=== PATIENT | female | born 1975 ===

== ENCOUNTER 2024-02-23 13:02 | Outpatient (AMB) | payer MEDICAID, SELFPAY ==
--- NOTE | 2024-02-23 13:04 | MHC.OFFVIS ---
Vital Signs 02/23/24 13:05 Height 5 ft 4 in Weight 195 lb BMI 33.5 BP 114/69 Blood Pressure Location Rt brachial Position Sitting Pulse 59 Pulse Source Pulse Oximeter Pulse Oximetry (%) 100 Oxygen Delivery Method Room Air Intake Visit Reasons: Osteoarthritis Allergies No Known Allergies Allergy (Verified 02/23/24 13:07) Medication List - Last Reconciled 02/23/24 by Jeanette Hernandez calcium carbonate-vitamin D3 600 mg-12.5 mcg (500 unit) (Calcium 600 with Vitamin D3) caps PO gabapentin 300 mg PO DAILY ibuprofen 600 mg PO Q8H PRN levocetirizine (Xyzal) 5 mg PO DAILY mg-we-dalp-FA-Ca carb-vit K 18 mg-400 mcg- 500 mg-50 mcg (Women's Multivitamin) tabs PO HPI Comments Details: Sonya is a very pleasant 48-year-old female who presents to the office today for evaluation management of her chronic cervical neck. Patient has been suffering with this pain for approximately 8 years, denies inciting injury. Formally under the care of pain management in [place]. She has had right cervical radiofrequency ablation performed 1 year ago. After the ablation she developed worsening pain to the right side of her neck with tightness and muscle spasms. Despite physical therapy, massage, trigger point injections the pain has persisted. She has since moved up to [facility] and is establishing care for follow-up Patient's history of substance use disorder, she has tried muscle relaxers in the past with some help. She has concerns about taking these on a daily basis given her history. previously took baclofen which provide her some relief but she tapered herself off after feeling like she was becoming physically dependent on the medication. Tizanidine and Flexeril in the past caused her to be too somnolent Denies radiation of the pain down either extremity to the hand. Denies shooting stabbing electrical pain down either extremity Endorses right sided neck pain from the base of her skull to her shoulder and across her scapula Pain is worse with movement in tender to palpation. Pain today is rated as an 8/10, constant and worse towards the end of the day and into the evening She has tried nonsteroidal anti-inflammatory medication, jifm-aoe-ygulgsf medications, lidocaine patches, topical creams, massage, TENS unit, cervical traction, physical therapy and home exercise program all without improvement of her pain. Greater than 6 months ago she underwent trigger point injections which provided her some relief, she would like to repeat these. She found minimal improvement with physical therapy though she is getting ready to restart it as referred by her PCP In terms of muscle damage condition is described as pinching, cramping, crushing, dull, sore, hurting, aching, heavy, punishing, tugging, pulling, ranging, tiring, hot, burning, scalding, tight, searing, squeezing Pain is negatively impacting patient's ability to sleep, perform activities of daily living, function normally. Denies implantable devices, pacemaker or defibrillator Denies current use of anticoagulant medication Former smoker, quit in 2014 Denies alcohol use. Endorses THC use, edibles Endorses history of substance use disorder. She has been in recovery for 18 years. [facility] Medical History (Updated 02/23/24 @ 13:51 by Willow Nelson APRN, CIRCULATION WORKER) Mental health disorder Heart palpitations Hepatitis C Fatigue Osteoarthritis Asthma Anemia Surgical History (Updated 02/23/24 @ 13:51 by Willow Nelson APRN, CIRCULATION WORKER) H/O: hysterectomy Gastric bypass status for obesity Review of Systems Const All systems reviewed & are unremarkable except as noted in HPI and below Physical Exam Vital Signs: Last Vital Signs Pulse 59 02/23/24 13:05 BP 114/69 02/23/24 13:05 Pulse Ox 100 02/23/24 13:05 Oxygen Delivery Method Room Air 02/23/24 13:05 BMI result Body Mass Index 33.5 General: awake, alert, oriented. Answers questions appropriately. Fully engaged in examination. Skin: warm, dry, intact HEENT: Normocephalic. Hearing intact. Cardiac: External chest normal in appearance. Respiratory: No cough, audible wheezing or stridor. Abdomen: without gross distension. MS: No obvious swelling or deformities. Able to transition from sit to stand unassisted. Ambulates with bilaterally normal heel strike and toe off Cervical Spine: Visible inspection without gross abnormality Moderate tenderness throughout bilateral upper trapezius muscles, right greater than left. Minimally tender to palpation midline cervical vertebrae and cervical paraspinal muscles decreased cervical ROM in all planes Spurling compression test positive BUE strength 5/5 Neurological: Oriented to person, place, time and situation. Thought process intact. No gait abnormalities appreciated. Psychiatric: Appropriate mood and affect. Good judgment and insight. Results Reviewed Results Reviewed: MRI cervical spine without contrast dated 03/24/2021 Impression: 1. Disc bulge and uncovertebral arthroplasty at C5-C6 causing swwq-sb-opvfhpah right neural foraminal narrowing. There is no central canal stenosis. 2. Small left paracentral disc protrusion and on uncovertebral arthropathy at C4-5 without spinal stenosis 3. Small disc bulges at C3-C4 and C6-C7 without spinal stenosis Assessment & Plan Assessment & Plan (1) Myofascial neck pain: Code(s): M54.2 - Cervicalgia Category: Medical (2) Trapezius muscle spasm: Code(s): M62.838 - Other muscle spasm Category: Medical (3) Cervical spondylosis: Code(s): M47.812 - Spondylosis without myelopathy or radiculopathy, cervical region Category: Medical Plan Sonya is a very pleasant 48-year-old female who presented to the office today for evaluation and management of her chronic neck pain History, physical exam and provocative testing consistent with myofascial neck pain, trapezius muscle spasm and cervical spondylosis Patient has exhausted conservative therapy including PT, home exercise program, massage, anti-inflammatory medications, heat, topical medications, muscle relaxers and krcp-itt-weyfeis medications Will try methocarbamol 500 mg p.o. t.i.d. as needed. Patient advised on cautions for use. We will schedule for an office trigger point injections with local anesthetic Records have been requested from patient's previous pain management clinic in [place] All questions and concerns were answered, patient agrees with the plan. Follow-up as planned for trigger point injections, sooner if needed. Medications: New methocarbamol No driving while taking this medication. Do no take with alcohol or other NURSE IN[employer]CTOR Depressants 500 mg PO TID PRN 45 tabs 0RF muscle spasm Coding Level of Care Code New Pt Level 4 (46043) Diagnoses Myofascial neck pain M54.2 Trapezius muscle spasm M62.838 Cervical spondylosis M47.812
[2024-02-23 13:05] VITALS: BP 114/69; PULSE 59; O2SAT 100; BMI 33.5
== END 2024-02-23 13:50 | disposition home or self-care (01) ==
PROVIDERS: PCP Family Medicine; Visit Provider Registered Nurse Emergency
DX: M54.2 Cervicalgia (principal); M62.838 Other muscle spasm; M47.812 Spondylosis without myelopathy or radiculopathy, cervical region
CPT/HCPCS: 99204

== ENCOUNTER → 2024-02-23 13:02 | Outpatient (BNVA) | payer MEDICAID, SELFPAY | PROVIDERS: PCP Family Medicine; Visit Provider Registered Nurse Emergency | DX: M54.2 Cervicalgia (principal); M62.838 Other muscle spasm; M47.812 Spondylosis without myelopathy or radiculopathy, cervical region | CPT/HCPCS: 99212 ==

== ENCOUNTER 2024-03-16 09:55 | Outpatient (AMB) | payer MEDICAID, SELFPAY ==
--- NOTE | 2024-03-16 10:02 | MHC.OFFVIS ---
Vital Signs 03/16/24 10:12 Height 5 ft 4 in Weight 194 lb 4 oz BMI 33.3 BP 115/70 Blood Pressure Location Lt brachial Position Sitting Respiration 16 Pulse 62 Pulse Source Pulse Oximeter Pulse Oximetry (%) 100 Oxygen Delivery Method Room Air Intake Visit Reasons: Trigger point Inj Intake Note: Patient comes in for trigger point injection. Reports pain 7/10. Allergies No Known Allergies Allergy (Verified 03/16/24 10:04) HPI Comments Details: Sonya is in my office today to receive trigger point injection in her trapezius muscle. She reported in the past she received this injection with great results. She was explained risks and benefits of the trigger point injections. The patient's condition described below also disc were discussed. She has a history of substance use disorder but she says that she was taking her last opioid 18 years ago. It was heroin. All things considered she recovered from addiction. Prior: Chronic neck pain Patient has been suffering with this pain for approximately 8 years, denies inciting injury. Formally under the care of pain management in [place]. She has had right cervical radiofrequency ablation performed 1 year ago. After the ablation she developed worsening pain to the right side of her neck with tightness and muscle spasms. Despite physical therapy, massage, trigger point injections the pain has persisted. She has since moved up to [facility] and is establishing care for follow-up Patient's history of substance use disorder, she has tried muscle relaxers in the past with some help. She has concerns about taking these on a daily basis given her history. previously took baclofen which provide her some relief but she tapered herself off after feeling like she was becoming physically dependent on the medication. Tizanidine and Flexeril in the past caused her to be too somnolent Denies radiation of the pain down either extremity to the hand. Denies shooting stabbing electrical pain down either extremity Endorses right sided neck pain from the base of her skull to her shoulder and across her scapula Pain is worse with movement in tender to palpation. Pain today is rated as an 8/10, constant and worse towards the end of the day and into the evening She has tried nonsteroidal anti-inflammatory medication, sezw-mkt-uqgzjjq medications, lidocaine patches, topical creams, massage, TENS unit, cervical traction, physical therapy and home exercise program all without improvement of her pain. Greater than 6 months ago she underwent trigger point injections which provided her some relief, she would like to repeat these. She found minimal improvement with physical therapy though she is getting ready to restart it as referred by her PCP [facility] Medical History (Updated 02/23/24 @ 13:51 by Willow Nelson APRN, LETICIA) Mental health disorder Heart palpitations Hepatitis C Fatigue Osteoarthritis Asthma Anemia Surgical History (Updated 02/23/24 @ 13:51 by Willow Nelson APRN, LETICIA) H/O: hysterectomy Gastric bypass status for obesity Review of Systems Const All systems reviewed & are unremarkable except as noted in HPI and below Physical Exam Vital Signs: Last Vital Signs Pulse 62 03/16/24 10:12 Resp 16 03/16/24 10:12 BP 115/70 03/16/24 10:12 Pulse Ox 100 03/16/24 10:12 Oxygen Delivery Method Room Air 03/16/24 10:12 BMI result Body Mass Index 33.3 General: awake, alert, oriented. Answers questions appropriately. Fully engaged in examination. Skin: warm, dry, intact HEENT: Normocephalic. Hearing intact. Cardiac: External chest normal in appearance. Respiratory: No cough, audible wheezing or stridor. Abdomen: without gross distension. MS: No obvious swelling or deformities. Able to transition from sit to stand unassisted. Ambulates with bilaterally normal heel strike and toe off Cervical Spine: Visible inspection without gross abnormality Moderate tenderness throughout bilateral upper trapezius muscles, right greater than left. Minimally tender to palpation midline cervical vertebrae and cervical paraspinal muscles decreased cervical ROM in all planes Spurling compression test positive BUE strength 5/5 Neurological: Oriented to person, place, time and situation. Thought process intact. No gait abnormalities appreciated. Psychiatric: Appropriate mood and affect. Good judgment and insight. Assessment & Plan Assessment & Plan (1) Myofascial neck pain: Code(s): M54.2 - Cervicalgia Category: Medical Plan: The patient was positioned sitting on the examination table. The most tender point on the right shoulder was examined and taut band was discovered. Location of the taut band was marked with surgical marker. After that the area was prepped with ChloraPrep and sterilely obtained bupivacaine 0.5% mixed with Kenalog 40 mg was injected into the taut band area in fan-like fashion. The patient tolerated procedure fairly well. No side effects were observed. (2) Trapezius muscle spasm: Code(s): M62.838 - Other muscle spasm Category: Medical (3) Cervical spondylosis: Code(s): M47.812 - Spondylosis without myelopathy or radiculopathy, cervical region Category: Medical Plan Sonya is a very pleasant 48-year-old female who presented to the office today for evaluation and management of her chronic neck pain History, physical exam and provocative testing consistent with myofascial neck pain, trapezius muscle spasm and cervical spondylosis Patient has exhausted conservative therapy including PT, home exercise program, massage, anti-inflammatory medications, heat, topical medications, muscle relaxers and agnu-sba-uxidikh medications Records have been requested from patient's previous pain management clinic in [place] We did not receive it yet. Trigger point injections as above. Patient will schedule appointment for left-sided trigger point injection to be performed in 1 month. Coding Level of Care Code Est Pt Level 3 (83648) Procedure Only Diagnoses Myofascial neck pain M54.2 Trapezius muscle spasm M62.838 Cervical spondylosis M47.812
[2024-03-16 10:12] VITALS: BP 115/70; PULSE 62; RESP 16; O2SAT 100; BMI 33.3
== END 2024-03-16 10:30 | disposition home or self-care (01) ==
PROVIDERS: PCP Family Medicine; Visit Provider Anesthesiology
DX: M54.2 Cervicalgia (principal); M62.838 Other muscle spasm; M47.812 Spondylosis without myelopathy or radiculopathy, cervical region
CPT/HCPCS: 20552; 99213

== ENCOUNTER → 2024-03-16 09:55 | Outpatient (BNVA) | payer MEDICAID, SELFPAY | PROVIDERS: PCP Family Medicine; Visit Provider Anesthesiology | DX: M54.2 Cervicalgia (principal); M62.838 Other muscle spasm; M47.812 Spondylosis without myelopathy or radiculopathy, cervical region | CPT/HCPCS: 20552; 99212; J0665; J3301 ==

== ENCOUNTER 2024-04-21 09:26 | Outpatient (AMB) | payer MEDICAID, SELFPAY ==
--- NOTE | 2024-04-21 09:28 | A.OFFVIS_ITS ---
Vital Signs 04/21/24 09:36 Height 5 ft 4 in Weight 188 lb 2 oz BMI 32.3 BP 116/77 Blood Pressure Location Lt brachial Position Sitting Respiration 16 Pulse 62 Pulse Source Pulse Oximeter Pulse Oximetry (%) 100 Oxygen Delivery Method Room Air Intake Visit Reasons: F/U for inj other side Intake Note: Patient comes in for trigger point injection. Reports pain 10/06. Allergies No Known Allergies Allergy (Verified 04/21/24 09:37) HPI Comments Details: Sonya is in my office today to receive trigger point injection in her trapezius muscle. Last month she reported to this office and received right-sided injection. Today she is here to receive left-sided trapezius muscle injection. There is a taut band on palpation in the projection of the medial portion of the trapezius muscle. She is asking me whether or not she can receive masseter muscles Botox injections in this office. Unfortunately she can not have massage or muscle buttocks injection here but she can not go to local dentist office and receive this injection with them. She reports good results on the right trigger point steroid injections she is looking forward for the left side injection today. She is asking me how often she can not receive those injections I told her that once I had should be injected no more frequent that once in 3 months however I told her to try to stretch this interval as much as possible because of the steroid medications have lots of complications. In the past she received steroid injections trigger point with great results. She was explained risks and benefits of the trigger point injections. She has a history of substance use disorder but she says that she was taking her last opioid 18 years ago. It was heroin. All things considered she recovered from addiction. Prior: Chronic neck pain Patient has been suffering with this pain for approximately 8 years, denies inciting injury. Formally under the care of pain management in [place]. She has had right cervical radiofrequency ablation performed 1 year ago. After the ablation she developed worsening pain to the right side of her neck with tightness and muscle spasms. Despite physical therapy, massage, trigger point injections the pain has persisted. She has since moved up to [facility] and is establishing care for follow-up Patient's history of substance use disorder, she has tried muscle relaxers in the past with some help. She has concerns about taking these on a daily basis given her history. previously took baclofen which provide her some relief but she tapered herself off after feeling like she was becoming physically dependent on the medication. Tizanidine and Flexeril in the past caused her to be too somnolent Denies radiation of the pain down either extremity to the hand. Denies shooting stabbing electrical pain down either extremity Endorses right sided neck pain from the base of her skull to her shoulder and across her scapula Pain is worse with movement in tender to palpation. Pain today is rated as an 8/10, constant and worse towards the end of the day and into the evening She has tried nonsteroidal anti-inflammatory medication, uqzf-xan-hbcdoql medications, lidocaine patches, topical creams, massage, TENS unit, cervical traction, physical therapy and home exercise program all without improvement of her pain. Greater than 6 months ago she underwent trigger point injections which provided her some relief, she would like to repeat these. She found minimal improvement with physical therapy though she is getting ready to restart it as referred by her PCP [facility] Medical History (Updated 02/23/24 @ 13:51 by Willow Nelson APRN, DIRECTOR OF RELIGIOUS LIFE) Mental health disorder Heart palpitations Hepatitis C Fatigue Osteoarthritis Asthma Anemia Surgical History (Updated 02/23/24 @ 13:51 by Willow Nelson APRN, DIRECTOR OF RELIGIOUS LIFE) H/O: hysterectomy Gastric bypass status for obesity Review of Systems Const All systems reviewed & are unremarkable except as noted in HPI and below Physical Exam Vital Signs: Last Vital Signs Pulse 62 04/21/24 09:36 Resp 16 04/21/24 09:36 BP 116/77 04/21/24 09:36 Pulse Ox 100 04/21/24 09:36 Oxygen Delivery Method Room Air 04/21/24 09:36 BMI result Body Mass Index 32.3 General: awake, alert, oriented. Answers questions appropriately. Fully engaged in examination. Skin: warm, dry, intact HEENT: Normocephalic. Hearing intact. Cardiac: External chest normal in appearance. Respiratory: No cough, audible wheezing or stridor. Abdomen: without gross distension. MS: No obvious swelling or deformities. Able to transition from sit to stand unassisted. Ambulates with bilaterally normal heel strike and toe off Cervical Spine: Visible inspection without gross abnormality Moderate tenderness throughout bilateral upper trapezius muscles, right greater than left. Minimally tender to palpation midline cervical vertebrae and cervical paraspinal muscles decreased cervical ROM in all planes Spurling compression test positive BUE strength 5/5 Neurological: Oriented to person, place, time and situation. Thought process intact. No gait abnormalities appreciated. Psychiatric: Appropriate mood and affect. Good judgment and insight. Assessment & Plan Assessment & Plan (1) Myofascial neck pain: Code(s): M54.2 - Cervicalgia Category: Medical Plan: The patient was positioned sitting on the examination table. The most tender point on the left shoulder was examined and taut band was discovered. Location of the taut band was marked.. After that the area was prepped with ChloraPrep and sterilely obtained bupivacaine 0.5% mixed with Kenalog 40 mg was injected into the taut band area in fan-like fashion. The patient tolerated procedure fairly well. No side effects were observed. (2) Trapezius muscle spasm: Code(s): M62.838 - Other muscle spasm Category: Medical (3) Cervical spondylosis: Code(s): M47.812 - Spondylosis without myelopathy or radiculopathy, cervical region Category: Medical Plan Sonya is a very pleasant 48-year-old female who presented to the office today for evaluation and management of her chronic neck pain History, physical exam and provocative testing consistent with myofascial neck pain, trapezius muscle spasm and cervical spondylosis Patient has exhausted conservative therapy including PT, home exercise program, massage, anti-inflammatory medications, heat, topical medications, muscle relaxers and cggz-pzr-srywxgp medications She is asking me about whether or not her pain in the masseters can be attended by injection in this office. I told her that it is impossible to receive those injections here. She also was asking me whether or not the pain in the trapezius muscle what can not be result of macromastia. I told her to get a consult with plastic surgeon about this condition. Trigger point injections as above. Next appointment is as needed. Coding Level of Care Code Est Pt Level 3 (73542) Procedure Only Diagnoses Myofascial neck pain M54.2 Trapezius muscle spasm M62.838 Cervical spondylosis M47.812
[2024-04-21 09:36] VITALS: BP 116/77; PULSE 62; RESP 16; O2SAT 100; BMI 32.3
== END 2024-04-21 09:59 | disposition home or self-care (01) ==
PROVIDERS: PCP Family Medicine; Visit Provider Anesthesiology
DX: M54.2 Cervicalgia (principal); M62.838 Other muscle spasm; M47.812 Spondylosis without myelopathy or radiculopathy, cervical region
CPT/HCPCS: 20552

== ENCOUNTER → 2024-04-21 09:26 | Outpatient (BNVA) | payer MEDICAID, SELFPAY | PROVIDERS: PCP Family Medicine; Visit Provider Anesthesiology | DX: M47.812 Spondylosis without myelopathy or radiculopathy, cervical region (principal); M62.838 Other muscle spasm | CPT/HCPCS: 20552; J0665; J3301 ==

== ENCOUNTER 2024-05-04 10:02 | Outpatient (REF) | payer MEDICAID, SELFPAY ==
--- NOTE | 2024-05-10 07:52 | MHC.AU.PEA ---
Audiological Evaluation: Pre-Central Auditory Processing Date of Visit: 05/04/24 Reason for Appointment: Audiological testing to determine if full Central Auditory Processing evaluation is warranted. Reportedly inquired about CAP testing via her PCP due to increasing difficulty understanding speech in the presence of competing noises. Recently, noticed difficulty hearing a song playing on an overhead speaker at a store that her could hear. Since then, started noticing more situations where she mishears words or is unable to comprehend the full conversation, missing a majority of what is said. Most frequently occurs in background noise (e.g., AC units, fans, sound machines), noted difficulty filtering out sounds and focusing on speech. Misunderstandings can be frustrating, sometimes causing issues with family members. Can get overwhelmed in public/crowded places. Reported long history of difficulty focusing, trouble remembering directions and completing tasks with multiple steps/directions. Dx ADHD, prescribed Vyvanse. However, has not taken in a couple weeks due other health issues. Has noticed she is calmer/more focused when medicated. Also question of possible autism. In process of scheduling reevaluation for ADHD and evaluation for autism at [facility]. Previous Test: 2010 Neuropsychological Evaluation: Dx ADHD (Taking Suboxone at that time, question influence on results) Patient History: Health History: Migraines; Anxiety/Depression; Panic Attacks; ADHD Patient's Medications: Levocetirizine, Gapapentin, Multivitamin, Calcium, Vit D, Iron, Vit C, Magnesium, Vit B12 Otoscopy: Right Ear: Unremarkable Left Ear: Unremarkable Tympanometry: Performed to: To assess integrity of the middle ear system Right Ear: Normal Middle Ear System (Type A) Left Ear: Normal Middle Ear System (Type A) Acoustic Reflexes: Ipsilateral Probe Right: Probe Left: 500 Hz: Present 500 Hz: Present 1000 Hz: Present 1000 Hz: Present 2000 Hz: Present 2000 Hz: Present 4000 Hz: Absent 4000 Hz: Present Otoacoustic Emissions: Frequency Range: 1.5-12 kHz Right Ear: Present 1.5-9 kHz; Reduced/absent 10-12 kHz Left Ear: Present 1.5-9 kHz; Reduced/absent 10-12 kHz Analysis: Present emissions suggest normal cochlear function; Absent emissions suggest cochlear dysfunction Hearing Evaluation: Method: Conventional Audiometry; Transducer: Insert Earphones; Stimuli: Pure Tones Right Ear: Normal hearing .25-8 kHz Left Ear: Normal hearing .25-8 kHz Speech Recognition Threshold (SRT): Method: Monitored Live Voice; Stimuli: Spondee Words Right Ear: 5 dB HL Left Ear: 5 dB HL Word Discrimination: Method: Recorded; Word Lists: NU-6 Right Ear: 100% correct at 50 dB HL Left Ear: 100% correct at 50 dB HL Most Comfortable Level: Method: Monitored Live Voice; Stimuli: Connected Discourse Right Ear: 50 dB HL to speech Left Ear: 50 dB HL to speech Uncomfortable Listening Level: Stimuli: Pure Tones Right Ear: >100, 100, 100, 100 dB at .5, 1, 2, and 4 kHz Left Ear: >100, 100, >100, 100 dB at .5, 1, 2, and 4 kHz QuickSIN: 0 dB SNR Loss - Normal (Central) Auditory Processing Screening Auditory Continuous Performance Test (ACPT): The ACPT provides information regarding auditory attention. This screening test evaluates an individual's ability to listen to auditory stimuli over a prolonged period of time. The score is based on the number of times the patient does not respond to the target stimuli and/or responds to stimuli other than the target stimuli. A score outside normative levels indicates possible attention difficulties. Passed ACPT SCAN-3 for Adolescents & Adults (SCAN-3:A): This is a screening test to determine if a individual is at risk for an Auditory Processing Disorder. The screening evaluates three areas of auditory processing skills and is scored by an age-appropriate Pass/Fail criterion. It is comprised of three parts: Gap Detection, Auditory Figure-Ground, and Competing Words-Free Recall. Gap Detection: Passed Gap Detection Auditory Figure-Ground +0dB: Passed Auditory Figure-Ground Competing Words- Free Recall: Passed Competing Words - Free Recall Overall: Passed SCAN- Not at high risk for auditory processing difficulties Interpretation of Results: Sonya has normal peripheral hearing, scored within normal on the QuickSIN, and passed all three subtests of the SCAN-3 (CAP screener). Given normal atbsup-oh-zfcqh testing and a passing score on the SCAN-3, a full CAP test is not warranted at this time. Recommendations: No further audiological action is indicated at this time. Given other reported hx related to Speech, Language, and Cognition (e.g., difficulty expressing thoughts, orientation/memory, maintaining topic of conversation), Speech, Language, and Cognition testing at [facility] may be warranted in conjunction with other evaluations for autism and ADHD. Signature: Provider: Marclea Perales, [facility]
== END 2024-05-04 10:03 | disposition home or self-care (01) ==
LOC: HO.SH 10:02
PROVIDERS: PCP Family Medicine; Visit Provider Physician Assistant
DX: Z01.118 Encounter for examination of ears and hearing with other abnormal findings (principal); H93.293 Other abnormal auditory perceptions, bilateral
CPT/HCPCS: 92550; 92557; 92588; 92700

== ENCOUNTER 2024-05-13 13:01 | Outpatient (AMB) | payer MEDICAID, SELFPAY ==
[2024-05-13 13:06] VITALS: BP 106/62; PULSE 74; O2SAT 99; BMI 31.6
--- NOTE | 2024-05-13 13:06 | A.OFFVIS_ITS ---
Vital Signs 05/13/24 13:06 Height 5 ft 4 in Weight 184 lb 1.376 oz BMI 31.6 BP 106/62 Blood Pressure Location Lt brachial Position Sitting Pulse 74 Pulse Source Pulse Oximeter Pulse Oximetry (%) 99 Oxygen Delivery Method Room Air Intake Visit Reasons: +RF/CM Intake Note: Patient presents today for abnormal labs, she is a new patient, referred by her PCP, Taylor Hernández. Allergies No Known Allergies Allergy (Verified 05/13/24 13:09) Medication List - Last Reconciled 05/13/24 by Elena Rodriguez MD calcium carbonate-vitamin D3 600 mg-12.5 mcg (500 unit) (Calcium 600 with Vitamin D3) caps PO famotidine 40 mg PO DAILY ferrous sulfate (Curly-Time) 325 mg PO DAILY gabapentin 300 mg PO DAILY ibuprofen 600 mg PO Q8H PRN levocetirizine (Xyzal) 5 mg PO DAILY lisdexamfetamine (Vyvanse) 10 mg PO DAILY magnesium oxide 500 mg PO DAILY mecobalamin (vitamin B12) mcg PO methocarbamol 500 mg PO TID PRN [id number] carb-vit K 18 mg-400 mcg- 500 mg-50 mcg (Women's Multivitamin) tabs PO omeprazole 40 mg PO DAILY HPI Comments Details: Patient is a 48-year-old female status post gastric bypass surgery who presents for evaluation of chronic back pain. Patient states that she started developing back pain in her 20s but at that time she was morbidly obese. She got gastric bypass and lost over 250 lb. After the rate loss she noted that the back pain and even the knee pain improved. However about 1-2 years ago she started noticing back pain that would improve with movement and worsen long prolonged periods of rest. She also started to notice shoulder pain and neck pain as well as knee pain. She denies any hand, wrist, feet, elbow pain. She has been seen and evaluated by crusher loader operator and serologies showed elevated rheumatoid factor however her exam was never consistent with inflammatory arthritis and show she was never given the diagnosis of rheumatoid arthritis. 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 She has gotten MRIs of the C-spine and LS-spine (reports reviewed) which showed degenerative disc disease throughout her spine. Her blood work has never shown elevated ESR CRP based on what I was shown. She does not have a history of inflammatory eye disease, dactylitis, psoriasis or rash. She has tried methotrexate, sulfasalazine and duloxetine in the past with no improvement in her pain. She does have a strong family history of osteoarthritis and autoimmune disease specifically thyroid disease including grades. [facility] Medical History (Updated 05/13/24 @ 14:10 by Elena Rodriguez MD) Lumbosacral disc disease Mental health disorder Heart palpitations Hepatitis C Fatigue Osteoarthritis Asthma Anemia Surgical History (Updated 02/23/24 @ 13:51 by Willow Nelson APRN, LIFT TRUCK MECHANIC) H/O: hysterectomy Gastric bypass status for obesity Review of Systems Const Details: Review of Systems Constitutional: Denies fever, chills, weight loss ENT: Denies vision changes, eye pain or eye redness, dental caries, dry mouth GI: Denies nausea, vomiting, diarrhea, abdominal pain, change in BM Pulm: Denies SOB, SMILEY, hemoptysis, wheezing Cards: Denies chest pain, palpitations Skin: Denies Raynaud's, rash, nail changes, photosensitivity, ANIMAL TECHNICIAN: Denies headaches, weakness, paresthesias, recurrent falls MSK: as per HPI All other systems reviewed and are unremarkable except noted above Physical Exam Vital Signs: BMI result Body Mass Index 31.6 Physical Examination CONSTITUITIONAL Patient alert and cooperative. Well appearing and in no apparent painful distress HEENT Conjunctiva and sclera clear. ?Pupils equal round and reactive to light. ?No lymphadenopathy. ?Normal dentition. No oral or nasal ulcers noted. No evidence of discoid rash to the sergio of ears CHEST/RESPIRATORY SYSTEM Normal respiratory effort and able to speak in complete sentences. ?Clear to auscultation bilaterally. ?No crackles, rales, rhonchi, wheezes heard. CARDIAC SYSTEM Regular rate and rhythm. ?S1 and S2 heard no murmurs. ?Radial pulses intact bilaterally MSK Hands: ?Good emt strength bilaterally - 5/5. ?No deformities noted. ?No synovitis noted to the MCPs, PIPs or DIPs. ?No tenderness to palpation of these joints. Wrists: ?Full range of motion at the wrists without pain. ?No tenderness to palpation or synovitis noted to the wrists. Elbows: Full range of motion without pain. No tenderness, weakness, swelling, increased warmth or erythema. Shoulders: Full range of motion to passive movement. Right shoulder with positive subscapularis and infraspinatus tendinopathy. Left shoulder with positive supraspinatus tendinopathy Hips: Full range of motion without pain. Hip bursa: No tenderness to palpation Knees: ?Full range of motion. ?No tenderness, swelling, increased warmth or erythema.?No effusion or crepitations Ankles: Full range of motion. ?No tenderness, swelling, increased warmth or erythema.? Feet: ?Negative squeeze test. ?No tenderness to palpation or swelling of the MTPs. Tender points:??No tenderness to palpation of the neck, shoulders, chest, elbows, hips, buttocks or knees. Wong's test normal SKIN Skin intact without rashes. Results Reviewed Results Reviewed: No results in chart to review however reviewed results on patient's MyChart. Assessment & Plan Assessment & Plan (1) Lumbosacral disc disease: Code(s): M51.9 - Unspecified thoracic, thoracolumbar and lumbosacral intervertebral disc disorder Category: Medical Plan: #Spondyloarthritis At this time I have an equivocal suspicion for her feels [place] for this diagnosis is the fact that the pain improves with movement and that the pain started at a young age. Against this is the fact that the pain improved after her weight loss surgery, normal Wong's test, evidence of degenerative disc disease throughout her spine, no other objective evidence of spondyloarthritis such as inflammatory eye disease, dactylitis, GI symptoms or skin disease. Had a very long discussion with patient about my findings and treatment options. I discussed that we could try Humira which is effective for spinal spondyloarthritic these whereas methotrexate and sulfasalazine were not. Or we could try Celebrex. Patient opted to try Celebrex and I am in agreement with her decision. Plan I spent 60 minutes reviewing the record and labs, seeing the patient, discussing the treatment plan and documenting in the medical record Medications: New celecoxib (Celebrex) 200 mg PO BID 180 caps 1RF M51.9 - Unspecified thoracic, thoracolumbar and lumbosacral intervertebral disc disorder Coding Level of Care Code New Pt Level 5 (77431) Diagnoses Lumbosacral disc disease M51.9
== END 2024-05-13 14:14 | disposition home or self-care (01) ==
PROVIDERS: PCP Family Medicine; Visit Provider Student in an Organized Health Care Education/Training Program
DX: M51.9 Unspecified thoracic, thoracolumbar and lumbosacral intervertebral disc disorder (principal)
CPT/HCPCS: 99205

== ENCOUNTER → 2024-05-13 13:01 | Outpatient (BNVA) | payer MEDICAID, SELFPAY | PROVIDERS: PCP Family Medicine; Visit Provider Student in an Organized Health Care Education/Training Program | DX: M51.9 Unspecified thoracic, thoracolumbar and lumbosacral intervertebral disc disorder (principal) | CPT/HCPCS: 99202 ==

== ENCOUNTER 2024-07-26 14:41 | Outpatient (REF) | payer MEDICAID, SELFPAY ==
[2024-07-26 15:49] LABS: MANUAL DIFF FLAG NO
--- OUTSIDE RECORDS SUMMARY | 2024-07-26 16:21 | XMS_ITS | Continuity of Care Document ---
Author Organization [facility] Address [address] [place] [address] Phone Care Team Providers Care Kitchen Chef Name Role Phone José Miguel Esquivel MD Unavailable Unavailable Allergies, Adverse Reactions, Alerts Substance Reaction Status Criticality No Known Allergies Active No Inform ation Medications Medication Instructions Dosage Effective Dates (start - stop) Status Comments gabapentin 300 mg capsule take 1 capsule by oral route 3 times every day 300 MG - Active levocetirizine 5 mg tablet take 1 tablet by oral route every day in the evening 5 MG - Active mupirocin 2 % topical ointment apply by topical route 3 times every day a small amount to the affected area 0.00 - Active Problems Condition Type Effective Dates (start - stop) [facility] Status Comments No Known Problems Procedures Procedure Date OV, New Pt, Level II Advance Directives Directive Yes / No Effective Date File Name No Information Encounters Encounter Description Practice Location Reason(s) For Visit Diagnoses Date Provider Providers Copied on Encounter OV, New Pt, Level II [facility], [address], [place], [place], [id number], [place] tel:[phone] [facility] Nasal obstruction (chief complaint) Deviated nasal septumOther specified disorders of nose and nasal sinuses 3 Alvin Valdez. [address], [address], [place], [place], [id number] , [place]. tel:[phone] Family History Family Member Type Diagnosis Age At Onset Father Problem malignant neoplasm of skin Mother Problem Cancer, unknown Sister Problem asthma Payers Payer name Insurance type Covered constitution party ID Authoriza tion(s) No Information Social History Type Description Quantity Date Captured Comments Alcohol Use Details No Caffeine Use Details Tobacco Use Status No Information Smoking Status Never smoker Non-Smoking Tobacco Use Details : No Details Available : No Details Available Sex Female Vital Signs Date / Time: Height Weight BMI Pulse Rate Blood Pressure Temperature Respiratory Rate Body Surface Area Head Circumference Head Circ. Percentile Wt./Kirt. Percentile BMI percentile Pulse Ox Inhaled Ox 1:45 PM 67.00 in 77.111 kg (170.00 lbs) 26.6 3 kg/m eter (2) Chief Complaint And Reason For Visit From encounter dated 07/15/2022 13:40'. Nasal obstruction (chief complaint). Description: It occurs in the right nostril. It occurs occasionally. The problem has not changed. Associated symptoms include nasal drainage (clear). Additional information: Pt states she feels something sharp in right nostril. Reason For Referral Reason For Referral No Information History Of Present Illness Encounter Date Complaint History Of Prese nt Illness Nasal obstruction It occurs in t he right nostril. It occurs occasionally. The problem has not changed. Associated symptoms include nasal drainage (clear). Additional information: Pt states she feels something sharp in right nostril. Functional Status Date Functional Assessmen t No Information Instructions Date Instruction Additional Infor mation Use Rx or OTC nasal steroid spray to control symptoms and avoid triggers or known allergens. Related to Deviated nasal septum Assessments Type Assessment Date assessment Deviated nasal septum assessment Other specified disorders of nos e and nasal sinuses impression Anterior septum is p ierced. If nasal obstruction becomes too symptomatic and is not controlled with medication and/or if recurrent or chronic sinusitis occurs, patient may be a candidate for septoplasty. Mental Status Date Cognitive Assessment Orientation - [place] ed to time, place, person, situation. Patient Care Teams Name Effective Dates (start - stop) Status Members No Information
[2024-07-26 17:10] LABS: Basophils Percent Auto 0.3 % (0-2); Eosinophils Percent Auto 0.3 % (0-4); Hemoglobin 12.3 g/dl (12.0-16.0); Imm Gran Abs Auto 0.01 X10*3/uL (0.00-0.03); Imm Gran Pct Auto 0.3 % (0.0-0.4); Lymphocytes Absolute Auto 1.3 X10*3/uL (1.2-4.9); Lymphocytes Percent Auto 32.7 % (20-40); Mean Corpuscular HGB Conc 31.5 g/dl (31.0-35.0); Mean Corpuscular Hemoglobin 27.8 pg (27.0-33.0); Mean Platelet Volume 12.1 fL (9.4-12.3); Monocytes Absolute Auto 0.3 X10*3/uL (0.1-1.2); Monocytes Percent Auto 6.8 % (2-11); Neutrophils Absolute Auto 2.3 x10*3/uL (2.0-8.3); Neutrophils Percent Auto 59.6 % (45-73); Platelet Count 185 X10*3/uL (160-400); Red Blood Count 4.43 X10*6/uL (4.20-5.50); Red Cell Distribution Width 12.5 % (11.0-16.0); White Blood Count 3.9 X10*3/uL (4.8-10.8)
[2024-07-26 17:54] LABS: Alanine Aminotransferase 22 U/L (0-31); Alkaline Phosphatase 57 U/L (39-117); Anion Gap 12 (12-20); Aspartate Amino Transferase 21 U/L (5-31); Bilirubin Total 0.2 mg/dL (0.0-1.0); Blood Urea Nitrogen 7 mg/dL (9-16); C Reactive Protein < 0.04 mg/dL (< or = 0.50); Calcium 8.9 mg/dL (8.4-10.2); Carbon Dioxide 31 mmol/L (22-29); Chloride 103 mmol/L (96-108); Estimated Glomerular Filt Rate > 60; Glucose Random 92 mg/dL (60-115); Potassium 3.8 mmol/L (3.3-5.1); Sodium 142 mmol/L (135-145); Total Protein 6.8 g/dL (6.5-8.0)
[2024-07-26 17:59] LABS: Erythrocyte Sedimentation Rate 6 MM/HR (0-20)
[2024-07-27 03:48] LABS: HBS Num1 674.59 mIU/mL (0-7.99); HBc Num1 1.98 S/CO (0.00-0.79); HBsAGNum1 0.37 S/CO (0.00-0.99); Hepatitis A Antibody IgM 0.37 Index (0-0.79); Hepatitis B Surface Antigen Negative (Negative); ~HepC Num1 11.06 S/CO (0.00-0.79); ~Hepatitis A Antibody IgM Nonreactive (Nonreactive); ~Hepatitis B Surface Antibody REACTIVE (Nonreactive); ~Hepatitis C Antibody Reactive (Nonreactive)
[2024-07-27 04:35] LABS: Hepatitis B Core Antibody Reactive (Nonreactive)
[2024-07-27 17:04] LABS: Hepatitis B Viral DNA Qn - cp NOT DETECTED Log IU/mL (NOT DETECTED); Hepatitis B Viral DNA Qn-IU/mL NOT DETECTED (NOT DETECTED)
[2024-07-27 19:38] LABS: HCV Log PCR <1.18 NOT DETECTED Log IU/mL (NOT DETECTED); HepC Viral Load <15 NOT DETECTED IU/mL (NOT DETECTED)
[2024-07-29 09:58] LABS: TS Negative Control Passed; TS Panel A 0; TS Panel B 1; TS Positive Control Passed; TSpotTB Negative (Negative)
[2024-07-30 12:18] LABS: HLA B27 Negative (Negative)
== END 2024-07-26 14:42 | disposition home or self-care (01) ==
LOC: HO.LAB 14:41
PROVIDERS: PCP Family Medicine; Visit Provider Student in an Organized Health Care Education/Training Program
DX: M45.0 Ankylosing spondylitis of multiple sites in spine (principal); Z79.620 Long term (current) use of immunosuppressive biologic
CPT/HCPCS: 36415; 80053; 85025; 85652; 86140; 86481; 86704; 86706; 86709; 86803; 86812; 87340; 87517; 87522; 99212

== ENCOUNTER 2024-07-26 14:42 | Outpatient (AMB) | payer MEDICAID, SELFPAY ==
[2024-07-26 14:42] VITALS: BP 134/82; PULSE 76; BMI 31.6
--- NOTE | 2024-07-26 14:42 | MHC.OFFVIS ---
Vital Signs 07/26/24 14:42 Height 5 ft 4 in Weight 183 lb 13.848 oz BMI 31.6 BP 134/82 Blood Pressure Location Rt brachial Position Sitting Pulse 76 Pulse Source Pulse Oximeter Intake Visit Reasons: hand pain Intake Note: Patient present today for hand pain. E Learning Developer Required: No Accompanied by: Self / Same As Patient Allergies No Known Allergies Allergy (Verified 07/26/24 14:46) Medication List - Last Reconciled 07/26/24 by Elena Rodriguez MD calcium carbonate-vitamin D3 600 mg-12.5 mcg (500 unit) (Calcium with Vit D3) caps PO celecoxib (Celebrex) 200 mg PO BID famotidine 40 mg PO DAILY ferrous sulfate (Curly-Time) 325 mg PO DAILY gabapentin 300 mg PO DAILY levocetirizine (Xyzal) 5 mg PO DAILY lisdexamfetamine (Vyvanse) 30 mg PO DAILY magnesium oxide 500 mg PO DAILY mecobalamin (vitamin B12) mcg PO gi-[id number]-[id number]-FA-Ca carb-vit K 18 mg-400 mcg- 500 mg-50 mcg (Women's Multivitamin) tabs PO HPI Comments Details: Patient is a 48-year-old female status post gastric bypass surgery who presents for follow up Interval History: Patient last seen 05/13/2024 at that time she was establishing care for the management of chronic back pain. At that time there was equivocal suspicion for seronegative spondyloarthritis but after discussion with the patient she opted to try Celebrex Today, Patient has been noticing swelling to her hands in the AM when she wakes up and increased redness over the PIPs She showed me a picture on the phone that showed swelling to her hands Has been noticing stiffness in the AM lasting an hour Has been taking the celebrex. Has not noticed any improvement Rheumatologic History: Monitoring for ? Spondyloarthritis Initial history: Patient states that she started developing back pain in her 20s but at that time she was morbidly obese. She got gastric bypass and lost over 250 lb. After the rate loss she noted that the back pain and even the knee pain improved. However about 1-2 years ago she started noticing back pain that would improve with movement and worsen long prolonged periods of rest. She also started to notice shoulder pain and neck pain as well as knee pain. She denies any hand, wrist, feet, elbow pain. She has been seen and evaluated by lithographic plate maker apprentice and serologies showed elevated rheumatoid factor however her exam was never consistent with inflammatory arthritis and show she was never given the diagnosis of rheumatoid arthritis. 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 She has gotten MRIs of the C-spine and LS-spine (reports reviewed) which showed degenerative disc disease throughout her spine. Her blood work has never shown elevated ESR CRP based on what I was shown. She does not have a history of inflammatory eye disease, dactylitis, psoriasis or rash. She has tried methotrexate, sulfasalazine and duloxetine in the past with no improvement in her pain. She does have a strong family history of osteoarthritis and autoimmune disease specifically thyroid disease including grades. Current Rheumatology Medication(s): Celebrex 200 mg p.o. b.i.d. [facility] Medical History (Updated 07/26/24 @ 16:10 by Elena Rodriguez MD) Adalimumab (Humira) long-term use Ankylosing spondylitis Lumbosacral disc disease Mental health disorder Heart palpitations Hepatitis C Fatigue Osteoarthritis Asthma Anemia Surgical History (Updated 02/23/24 @ 13:51 by Willow Nelson APRN, BARKING MACHINE FEEDER) H/O: hysterectomy Gastric bypass status for obesity Review of Systems Const Details: Review of Systems Constitutional: Denies fever, chills, weight loss ENT: Denies vision changes, eye pain or eye redness, dental caries, dry mouth GI: Denies nausea, vomiting, diarrhea, abdominal pain, change in BM Pulm: Denies SOB, SMILEY, hemoptysis, wheezing Cards: Denies chest pain, palpitations Skin: Denies Raynaud's, rash, nail changes, photosensitivity, DATABASE ADMINISTRATION MANAGER: Denies headaches, weakness, paresthesias, recurrent falls MSK: as per HPI All other systems reviewed and are unremarkable except noted above Physical Exam Physical Examination CONSTITUITIONAL Patient alert and cooperative. Well appearing and in no apparent painful distress HEENT Conjunctiva and sclera clear. ?Pupils equal round and reactive to light. ?No lymphadenopathy. ?Normal dentition. No oral or nasal ulcers noted. No evidence of discoid rash to the sergio of ears CHEST/RESPIRATORY SYSTEM Normal respiratory effort and able to speak in complete sentences. ?Clear to auscultation bilaterally. ?No crackles, rales, rhonchi, wheezes heard. CARDIAC SYSTEM Regular rate and rhythm. ?S1 and S2 heard no murmurs. ?Radial pulses intact bilaterally MSK Hands: ?Good metal bonding assembler strength bilaterally - 5/5. ?No deformities noted. ?No synovitis noted to the MCPs, PIPs or DIPs. ?No tenderness to palpation of these joints. Redness over the DIPs Wrists: ?Full range of motion at the wrists without pain. ?No tenderness to palpation or synovitis noted to the wrists. Elbows: Full range of motion without pain. No tenderness, weakness, swelling, increased warmth or erythema. Shoulders: Full range of motion to passive movement. Hips: Full range of motion without pain. Hip bursa: No tenderness to palpation Knees: ?Full range of motion. ?No tenderness, swelling, increased warmth or erythema.?No effusion or crepitations Ankles: Full range of motion. ?No tenderness, swelling, increased warmth or erythema.? Feet: ?Negative squeeze test. ?No tenderness to palpation or swelling of the MTPs. Tender points:??No tenderness to palpation of the neck, shoulders, chest, elbows, hips, buttocks or knees. Wong's test normal SKIN Skin intact without rashes. Results Reviewed Results Reviewed: No labs in the system Assessment & Plan Assessment & Plan (1) Ankylosing spondylitis: Code(s): M45.9 - Ankylosing spondylitis of unspecified sites in spine Category: Medical Qualifiers: Ankylosing spondylitis location: multiple sites in spine Qualified Code(s): M45.0 - Ankylosing spondylitis of multiple sites in spine Plan: #Ankylosing spondylitis Patient with evidence of dactylitis on the picture that she showed me. Patient has tried and failed Celebrex, methotrexate, ibuprofen. I think she would benefit from Humira 40 mg SC every other week. We will check efficacy in 4 months. Start prior Auth Plan - Humira 40mg SC every other week - Stop Celebrex - Check CBC, CMP, ESR, CRP, Hepatitis panel, T spot - RTC 4 months - Labs prior to visit (2) Adalimumab (Humira) long-term use: Code(s): Z79.620 - local intermodal truck driver (current) use of immunosuppressive biologic Category: Medical Plan: #Long-term Use of TNF Inhibitors: Humira Discussed with the patient the benefits and risks of TNF inhibitors for the management of the rheumatic condition Benefits include reduce pain, maintenance of remission and reduction of flares as well as ?progression of the disease Risks include injection sites/infusion reactions, serious infections (such as bacterial infections, opportunistic infections), malignancy, delaminating syndromes, autoimmune phenomena, CHF exacerbations, palmar plantar psoriasis and cytopenias Recommended rotating injection sites, and holding medication during and for up to 1 week after resolution of a febrile illness or open skin wound Plan I spent 30 minutes reviewing the record and labs, taking a history, examining the patient, discussing the treatment plan and documenting in the medical record Orders: Orders Hepatitis C Viral Load Today M45.9 - Ankylosing spondylitis of unspecified sites in spine Hepatitis B Viral DNA Qn Today M45.9 - Ankylosing spondylitis of unspecified sites in spine HLA B27 Today M45.0 - Ankylosing spondylitis of multiple sites in spine Complete Blood Count Auto Diff Today M45.9 - Ankylosing spondylitis of unspecified sites in spine Comprehensive Met. Panel Today M45.9 - Ankylosing spondylitis of unspecified sites in spine C Reactive Protein Today M45.9 - Ankylosing spondylitis of unspecified sites in spine Hepatitis A,B,C Profile Today M45.9 - Ankylosing spondylitis of unspecified sites in spine Erythrocyte Sedimentation Rate Today M45.9 - Ankylosing spondylitis of unspecified sites in spine T Spot TB Today M45.9 - Ankylosing spondylitis of unspecified sites in spine Medications: New adalimumab (Humira(CF) Pen) (0.4 mL) 40 mg subcutaneously; 30 days 2 ea 4RF M45.9 - Ankylosing spondylitis of unspecified sites in spine Discontinued celecoxib (Celebrex) Discontinued Reason: Doctor's Order 200 mg PO BID 180 caps 1RF M51.9 - Unspecified thoracic, thoracolumbar and lumbosacral intervertebral disc disorder Coding Level of Care Code Est Pt Level 4 (26056) Complex EM visit Add On G2211 Diagnoses Ankylosing spondylitis of multiple sites in spine M45.0 Ankylosing spondylitis location: multiple sites in spine Adalimumab (Humira) long-term use Z79.620
--- OUTSIDE RECORDS SUMMARY | 2024-07-26 15:38 | XMS_ITS | Continuity of Care Document ---
Author Organization [facility], Main Office Address [address] [facility] [address] [place] [address] Assessment Encounter Date Assessment Date Assessment LastModified by Organization Details LastModified Time 07/15/2024 07/15/2024 The patient was advised to continue a healthy diet and exercise regularly. Preventative care discussed in detail. Eight minutes spent on each counselling about depression, alcohol, obesity, and cardiovascular health. Further preventative care counselling discussed as documented below. Plan - Order a screening mammogram to be conducted at the patient's preferred location. The ultrasound will be decided by the radiology team if necessary. - Send a referral and relevant notes to the ENT in [place], including information about the patient's reflux. - Prescribe famotidine 20 mg with instructions to take one tablet four times a day as needed. This is to assist in transitioning off omeprazole. - Prescribe Vyvanse 30 mg to be filled at [facility] in [place]. Monitor for any side effects or changes in efficacy. - Schedule a follow-up appointment in three months to evaluate the effectiveness and tolerance of the adjusted Vyvanse dosage. Adjustments can be made sooner if necessary, based on the patient's feedback. Moderate complexity issues was discussed in relation to ongoing laryngeal pharyngeal reflux and ADHD in addition to today's preventative visit. During this encounter, 2 of the 3 elements of MDM addressed: (1)Number and Complexity of problems: 1 or more chronic illness with exacerbation, progression, or side effects of treatment (2)Amount/Complex ity of data (need 1 out of 3 categories): Category 3: Discussion of management or test interpretation (3)Moderate Risk of morbidity from additional diagnostic testing or treatment (one needed): Prescription Drug management [email or web address] Not available 07/15/2024 13:00:24 Plan of Treatment Reminders Order Date Submit Date Provider Last Modified By Organization Details Last Modified Time Details Appointments Dermatolo gy Any 15 2024 02:30P M FÁTIMA NUNEZ Not available Not available Not available FOLLOW UP 2024 11:40A M LOUANN FREIRE PA-C Not available Not available Not available Lab None recorded. Referral otolaryng ologist referral 2024 025 [place] [address] [facility], [address] [place], [address], 07/22/2024 10:15:20 Procedures None recorded. Surgeries None recorded. Imaging MAMMO, screening , digital, bilateral [facility], [address] [place], [address], 07/20/2024 15:35:30 Medication Orders famotidin e 20 mg tablet 2024 025 [id number], [address], [place], [place], [id number], 07/15/2024 12:56:08 Vyvanse 30 mg capsule 2024 025 [facility][id number], [address] [place], [place], [id number], 07/15/2024 12:56:08 Patient TargetsNo targets recorded. Patient InstructionsNo instructions recorded. Reason for Referral Special Systems Technician Referral fo r Laryngopharyngeal reflux Referring Physician: Louann Freire, Family Medicine, Encounter Date: 07/15/2024 Problems Name Problem SNOMED Code Status Onset Date Resolution Date Notes Provider Name and Address Organization Details Recorded Time Carpal tunnel syndrome 41490016 Active 2023 LOUANN FRERIE PA-C [address], [place], [address], [place] [facility] 4 14:18:09 Tendinitis of wrist 519503717 Active [address], [place], [address], [place] [facility] 4 14:18:19 History of bariatric surgical procedure 771219078 Active [address], [place], [address], [place] [facility] 4 18:51:50 Attention deficit hyperactivity disorder 691926230 Active [address], [place], [address], [place] [facility] 4 18:51:53 Temporomandibu lar obhbf-mnky-fdc function syndrome 787453505 Active [address], [place], [address], [place] [facility] 4 18:51:55 Arthritis 2538752 Active [address], [place], [address], [place] [facility] 4 18:51:57 Intervertebral disc prolapse 18389921 Active [address], [place], [address], [place] [facility] 4 19:00:50 Rosacea 794567726 Active [address], [place], [address], [place] [facility] 4 19:01:17 Tarsal coalitions 92995151 Active [address], [place], [address], [place] [facility] 4 19:02:33 History of substance abuse 999357835 Active 2023 LOUANN FREIRE, PA-C [address], [place], [address], [facility] 4 19:03:16 [facility] 11:11:11 Problem Notes None recorded. Procedures Surgical History Date Name Laterality Status Provider Name and Address Organization Details Recorded Time Hysterectomy completed LOUANN Blas PA-C [address] [facility],[address], [place], [address], [facility] 01/07/2024 14:25:07 Imaging Results None recorded. Procedure Notes None recorded. Medical Equipment None Reported. Allergies No known drug allergies Medications Name Sig Start Date Stop Date Status Note LastModified by Organization Details LastModified Time celecoxib 200 mg capsule TAKE 1 CAPSULE BY MOUTH TWICE DAILY active Not Available Not Available No t Available methocarbam ol 500 mg tablet 1 tablet by mouth TID 05/23 completed Not Available Not Available Not Available famotidine 40 mg tablet TAKE 1 TABLET BY MOUTH EVERY DAY active Not Available Not Available No t Available famotidine 20 mg tablet TAKE 1 TABLET BY MOUTH FOUR TIMES DAILY NEEDED FOR STOMACH ACID OR REFLUX active Not Available Not Available No t Available gabapentin 300 mg capsule TAKE 1 CAPSULE BY MOUTH THREE TIMES DAILY active Not Available Not Available No t Available ibuprofen 600 mg tablet TAKE 1 TABLET BY MOUTH THREE TIMES DAILY NEEDED active Not Available Not Available No t Available Vyvanse 30 mg capsule TAKE 1 CAPSULE BY MOUTH EVERY DAY active Not Available Not Available No t Available levocetiriz ine 5 mg tablet TAKE 1 TABLET BY MOUTH EVERY DAY active Not Available Not Available No t Available Vyvanse 20 mg capsule TAKE 1 CAPSULE BY MOUTH EVERY DAY active Not Available Not Available No t Available Vyvanse 10 mg capsule TAKE 1 CAPSULE BY MOUTH EVERY DAY 07/15 completed Not Available Not Available Not Available albuterol sulf 90 mcg/actuati on breath activated powder inhaler,sen sor Inhale 2 puffs every 4 hours by inhalatio n route. active Not Available Not Available No t Available Vitals Date Recorded Body height Body mass index (BMI) Body weight Oxygen saturation Oxygen saturation in Arterial blood by Pulse oximetry Heart rate Systolic blood pressure Diastolic blood pressure Provider Name and Address Organization Details Last Updated DateTime 5 162.56 cm 30.3 kg/m2 89807.3 6 g 99 % 99 % 72 /min 118 mm[Hg] 72 mm[Hg] Karin piña [place] [facility] 11:14:06 Social History Question Answer Notes LastModified by Organizat ion Details LastModified Time Tobacco Smoking Status Former Smoker LOUANN FREIRE PA-C [address] [facility],[address], [place], [address], [place] [facility] 01/07/2024 14:37:23 What Is Your Level Of Alcohol Consumption? None [email or web address] Information not available 01/07/2024 Which Illicit Or Recreational Drugs Have You Used? Cbd Gummies [email or web address] Information not available 01/07/2024 When Did You Quit Smoking? 6-10yearssin celastcigare tte [email or web address] Information not available 01/07/2024 What Was The Date Of Your Most Recent Tobacco Screening? 01/07/2024 Information not available 01/07/2024 Do You Use Any Illicit Or Recreational Drugs? Yes [email or web address] Information not available 01/07/2024 Sex: Unknown Functional Status None recorded. Mental Status None recorded. Family History Relationship Description Onset Age of this Age Resolved Age Notes LastModified by Organization Details LastModified Time Unspecified Relation Lilliana thyroiditis niece [email or web address] Not available 12/27 14:24:42 Unspecified Relation Malignant tumor of breast half- sister [email or web address] Not available 01/07/2024 14:33:35 Mother Malignant tumor of stomach [email or web address] Not available 2023 14:29:55 Sister Malignant tumor of thyroid gland Not available 2023 14:32:32 Father Malignant lymphoma [email or web address] Not available 2023 14:32:57 Father Malignant melanoma [email or web address] Not available 2023 14:33:05 Father Myocardial infarction x3 [email or web address] Not available 01/06 14:34:22 Father Cerebrovascu lar accident x2 [email or web address] Not available 04/2024 14:34:42 Maternal Uncle Myocardial infarction [email or web address] Not available 01/06 14:35:09 Maternal Uncle Malignant tumor of colon [email or web address] Not available 2024 11:26:32 Notes:brain (maternal), paddy st (maternal), ovarian (maternal), and prostate (paternal) cancer Medical History No medical history recorded. Gynecological History Statement/Question Response Date of Last Pap Smear Most Recent Mammogram Date of Last Colonoscopy Obstetrics History GPAL:G 0 P 0 0 0 0 Immunizations Vaccine Type Date Status Note Provider Tone german and Address Organization Details Recorded Time COVID-19, mRNA, LNP-S, PF, 50 mcg/0.5 mL 05/06/2024 completed Anabelle Malcolm null, [place] [facility] 07/08/2024 09:31:42 Influenza, split virus, trivalent, PF 05/06/2024 completed Anabellejr Malcolm null, [place] [facility] 07/08/2024 09:31:42 Tdap 06/29/2022 completed Karin Infante null, [place] [facility] 07/15/2024 11:12:19 Past Encounters Encounter ID Performer Location Encounter Start Date Encounter Closed Date Diagnosis/Indication Diagnosis SNOMED-CT Code Diagnosis ICD10 Code Diagnosis Note [id number] LOUANN FREIRE PA-C Main Office [address] [facility] [address] [place] [address] 07/15/2024 11:02:34 07/15/2024 11:53:14 Active or passive immunization 794622079 Z23 Up-to-date on tetanus, flu, and covid immunizati on. Adult heal th examination 225190033 Z00.00 No longer obtains Pap smears in the setting of historical elective hysterecto my.Due for mammogram, will order as below.Up-t o-date on colon cancer screening (obtained at age 46), due for repeat at age 51 given family history.Up coming eye exam next week. Upcoming dental exam in September 2024. Screening for malignant neoplasm of breast 183472723 Z12.39 Gastroesop hageal reflux disease 525278022 K21.9 Attention deficit hyperactivity disorder 428909290 F90.9 ? Symptoms include difficulty with concentrat ion, difficulty completing tasks, difficult goals with multitaski ng, difficulty with shortened patience, inability to sit still while others are talking- Plans to undergo an evaluation with [employer] in the future for autism screening Jun 2024- Awaiting placement with [employer]FOR[employer]NA[employer] medication provider.- Will increase to vyvanse 30 mg po daily; will monitor for sx and reassess in 3 months.- Education: Discuss potential side effects of Vyvanse and the importance of adherence to the prescribed dosage. Laryngopha ryngeal reflux 533397382 K21.9 - Assessment : Patient reports improvemen t in symptoms with dietary changes for reflux management . She has been avoiding oils and junk food, which has helped reduce symptoms.- Plan: Continue dietary changes and lifestyle modificati ons, including eating dinner earlier and using an adjustable bed to elevate the head during sleep. Continues famotidine 20 mg po 4 times daily prn. Taper off omeprazole slowly due to long-term use and side effects. Referral to ENT for further evaluation of reflux and potential esophageal concerns.- Follow-up: Monitor symptoms and adjust lifestyle modificati ons as needed. Follow up with ENT as per referral.- Education: Educate patient on the importance of maintainin g dietary changes and monitoring symptoms during omeprazole tapering. Health Concerns Section Related Observation LastModified by Organization Detai ls LastModified Time None Recorded Concern Status LastModified by Organization Details LastModified Time None Recorded Payers Encounter Date Sequence Insurance Name Policy Number Policy Devries Covered Member ID Devries Member ID Guarantor Name 07/15/2024 1 [place] [facility] Sonya García [id number] Sonya García Notes Date Note Type Note Provider Name and Address Organization Details Recorded Time 07/15/2024 text/html Sonya García, 48-year-old female, is undergoing an annual preventive visit. She has a history of reflux, as discussed last visit. She is currently on a detox diet to address issues such as a raspy voice, burning tongue, and reflux symptoms. She reports some difficulty swallowing, which she believes is related to reflux. She is transitioning off omeprazole and is on her third day without it. Continues with daily famotidine. She is considering increasing her Vyvanse dosage from 20 mg, as she has not experienced side effects at the current dose and would benefit from increased effectiveness. LOUANN FREIRE PA-C [address] [facility],[address], [place], [address], [place] [facility] 07/15/2024 13:03:05 OBGyn Episode No OBEpisode recorded.
--- OUTSIDE RECORDS SUMMARY | 2024-07-26 15:38 | XMS_ITS | Data Portability ---
Author Organization [facility], [employer] Address [address] [place] [id number] Assessment Encounter Date Assessment Date Assessment LastModified by Organization Details LastModified Time 03/11/2024 03/11/2024 During this encounter, 2 of the 3 elements of MDM addressed: (1)Number and Complexity of problems: 2 or more stable chronic illnesses (2)Amount/Complexi ty of data (need 1 out of 3 categories): Category 3: Discussion of management or test interpretation (3)Moderate Risk of morbidity from additional diagnostic testing or treatment (one needed): Prescription Drug management. Not available 03/11/2024 15:40:40 04/08/2024 04/08/2024 Iassessment - Patient's ADHD symptoms appear to be slightly improved with Vyvanse, but patient is still undergoing titration of the medication. - Patient's xerostomia could be a side effect of Vyvanse, but further monitoring is required to confirm. - Patient's depression and anxiety require intervention, potentially through pharmacological adjustment or psychotherapy. Plan - Continue current Vyvanse dosing and utilize as needed. - Increase fluid intake to manage xerostomia. - Consider saliva substitutes if xerostomia becomes bothersome. - Monitor for any changes in symptoms or side effects. - Consider discussing the potential need for antidepressant therapy with a mental health professional. Prescription Vyvanse, continue current dosing. Appointments Next appointment scheduled for July 15 for a preventative physical. During this encounter, 2 of the 3 elements of MDM addressed: (1)Number and Complexity of problems: 2 or more stable chronic illnesses (2)Amount/Complexi ty of data (need 1 out of 3 categories): Category 3: Discussion of management or test interpretation (3)Moderate Risk of morbidity from additional diagnostic testing or treatment (one needed): [email or web address] Not available 05/05/2024 15:44:16 04/28/2024 04/28/2024 Assessment - Differential diagnosis includes GERD, anxiety, and cardiovascular disorders. - The patient's symptoms could be multifactorial, with possible contributions from GERD, anxiety, and cardiovascular disorders. Plan - Plan to eliminate dietary triggers for gastroesophageal reflux disease (GERD) and continue with omeprazole and famotidine. - Plan to conduct a cardiac workup including a Holter monitor and echocardiogram. - If symptoms do not resolve within the next few weeks despite continuing on GERD therapy, diet modifications, and pursuing a cardiac workup, a repeat chest radiograph or computed tomography (CT) scan may be considered. - ED criteria provided for signs/sx of ACS/CVA. Appointments Plan to meet within the next one to two weeks to check on the patient's condition. A/V telehealth encounter. During this encounter, 2 of the 3 elements of MDM addressed: (1)Number and Complexity of problems: 1 undiagnosed new problem with uncertain prognosis (2)Amount/Complexi ty of data (need 1 out of 3 categories): Category 3: Discussion of management or test interpretation (3)Moderate Risk of morbidity from additional diagnostic testing or treatment (one needed): [email or web address] Not available 05/05/2024 15:46:25 05/23/2024 05/23/2024 During this encounter, 2 of the 3 elements of MDM addressed: (1)Number and Complexity of problems: 1 or more chronic illness with exacerbation, progression, or side effects of treatment (2)Amount/Complexi ty of data (need 1 out of 3 categories): Category 3: Discussion of management or test interpretation (3)Moderate Risk of morbidity from additional diagnostic testing or treatment (one needed): Prescription Drug management [email or web address] Not available 05/23/2024 12:25:53 07/15/2024 07/15/2024 The patient was advised to [...] and relevant notes to the ENT in [place], including information about the patient's reflux. - Prescribe famotidine 20 mg with instructions to take one tablet four times a day as needed. This is to assist in transitioning off omeprazole. - Prescribe Vyvanse 30 mg to be filled at [facility] in [place]. Monitor for any side effects or changes [...] exacerbation, progression, or side effects of treatment (2)Amount/Complexi ty of data (need 1 out of 3 categories): Category 3: Discussion of management or test interpretation (3)Moderate Risk of morbidity from additional diagnostic testing or treatment (one needed): Prescription Drug management [email or web address] Not available 07/15/2024 13:00:24 Plan of Treatment Reminders Order Date Submit Date Provider Last Modified By Organization Details Last Modified Time Details Appointments Dermatolo gy Any 15 2024 02:30P M FÁTIMA NUNEZ Not available Not available Not available FOLLOW UP 2024 11:40A M TAYLOR FREIRE PA-C Not available Not available Not available Lab drug screen, urine 2023 024 [facility], [address], [place], [address], 03/11/2024 15:41:34 Referral otolaryng ologist referral 2023 024 [email or web address] Not available 06/01/2024 11:31:57 otolaryng ologist referral 2024 025 [email or web address], [address] [place], [address], 07/22/2024 10:15:20 Procedures holter monitor placement (PROC) - ZIO XT 3 day [email or web address] [facility], [address], [address], 05/09/2024 10:38:08 trans-tho racic echocardi ogram (TTE) (PROC) [address] [facility], [address] [place], [address], 05/09/2024 10:37:50 Surgeries None recorded. Imaging MAMMO, screening , digital, bilateral 2024 025 [facility], [address], [place], [address], 07/20/2024 15:35:30 Medication Orders Vyvanse 10 mg capsule 2023 025 [id number], [address] [place], [place], [id number], 07/15/2024 11:10:32 famotidin e 20 mg tablet 2023 024 [email or web address] [facility], [address] [place], [place], [id number], 05/23/2024 11:41:25 famotidin e 20 mg tablet 2024 025 [id number], [address] [place], [place], [id number], 07/15/2024 12:56:08 Vyvanse 30 mg capsule 2024 025 [facility], [address] [facility] [place], [place], [id number], 07/15/2024 12:56:08 Patient TargetsNo targets recorded. Patient Instructions Encounter Date Encounter Id Patient Instructions Last Modified By Organization Details Last Modified Time 05/23/2024 [id number] Patient Instruct ions for Sonya García Date: May 23, 2024 Hello Sonya, Thank you for visiting [facility]. Here are your instructions to help manage your health: 1. Laryngopharyngeal Reflux (LPR) Management - Continue following dietary and lifestyle changes to manage LPR. This includes avoiding late-night snacking and elevating your bed. - Use alkaline water as needed and continue avoiding foods that trigger symptoms. - Gradually taper off omeprazole as planned. If symptoms worsen, contact us for guidance. 2. Physical Therapy - Coordinate with your new job schedule to continue physical therapy sessions. This will help manage your rotator cuff and arthritis symptoms. 3. Specialist Referrals - Follow up with ENT for further evaluation of LPR. Contact us once you decide on a specialist for the referral. - Consider seeing a GI specialist if needed for further management of reflux. 4. Medications - Continue taking Celebrex as prescribed for arthritis. - Monitor any side effects from Vyvanse and report them during your next appointment. 5. General Health - Keep a journal of symptoms and dietary changes to track what affects your reflux. - Maintain regular check-ups and communicate any new symptoms or concerns. If you have any questions or need further assistance, please feel free to reach out. We look forward to seeing you at your next appointment in June. Take care and enjoy your holidays! Warm regards, Taylor Freire [facility] [email or web address] Not available 05/23/2024 12:29:05 Reason for Referral [employer]visor [employer] Referral fo r Laryngopharyngeal reflux Referring Physician: Taylor Freire [facility], Encounter Date: 05/23/2024 Supervisor [employer] Referral fo r Laryngopharyngeal reflux Referring Physician: Taylor Freire [facility], Encounter Date: 07/15/2024 Results Created Date Observation Date Name Description Value Unit Range Abnormal Flag Note LastModifiedBy Organization Detail LastModifiedTime 03/11/20 24 03/11/2024 drug scree n, urine Amphetamines : negati ve Not Available [address], [place], [address], 03/11/2024 15:26:06 03/11/20 24 03/11/2024 drug scree n, urine Cannabinoids : positi ve Not Available [address], [address], 03/11/2024 15:26:06 03/11/20 24 03/11/2024 drug scree n, urine Cocaine: negati ve Not Available [facility] [address] [place], [address], 03/11/2024 15:26:06 03/11/20 24 03/11/2024 drug scree n, urine Opiates: negati ve Not Available [facility] [address] [place], [address], 03/11/2024 15:26:06 03/11/20 24 03/11/2024 drug scree n, urine Phenocyclidi ne: negati ve Not Available [facility] [address] [place], [address], 03/11/2024 15:26:06 03/11/20 24 03/11/2024 drug scree n, urine Barbiturates : negati ve Not Available [address] [place], [address], 03/11/2024 15:26:06 03/11/20 24 03/11/2024 drug scree n, urine Benzodiazepi pierce: negati ve Not Available [address] [place], [address], 03/11/2024 15:26:06 Result Notes None recorded. Problems Name Problem SNOMED Code Status Onset Date Resolution Date Notes Provider Name and Address Organization Details Recorded Time Carpal tunnel syndrome 18417700 Active 2023 TAYLOR FREIRE PA-C 1 [facility][Note 3],[address], [place], [address], [facility] 4 14:18:09 Tendinitis of wrist 949133314 Active 2023 TAYLOR FERIRE PA-C 1 [facility][Note 3],[address], [place], [address], [facility] - [facility] 4 14:18:19 History of bariatric surgical procedure 712953625 Active 2023 TAYLOR FREIRE PA-C [address], [place], [address], [place] [facility] 4 18:51:50 Attention deficit hyperactivity disorder 342899789 Active 2023 TAYLOR FREIRE PA-C [address], [place], [address], [place] [facility] 4 18:51:53 Temporomandibu lar mtsrq-fork-iyi function syndrome 683311295 Active [address], [place], [address], [place] [facility] 4 18:51:55 Arthritis 3138082 Active [address], [place], [address], [place] [facility] 4 18:51:57 Intervertebral disc prolapse 56929502 Active [address], [place], [address], [place] [facility] 4 19:00:50 Rosacea 005866562 Active [address], [place], [address], [place] [facility] 4 19:01:17 Tarsal coalitions 78319265 Active [address], [place], [address], [place] [facility] 4 19:02:33 History of substance abuse 125927441 Active [address], [place], [address], [place] [facility] 4 19:03:16 Total hysterectomy Active 2024 Karin johnson, [place] - [facility] 5 11:11:11 Problem Notes None recorded. Procedures Surgical History Date Name Laterality Status Provider Name and Address Organization Details Recorded Time Hysterectomy completed TAYLOR Blas PA-C 1 [facility][Note 3],[address], [place], [address], [facility] 01/07/2024 14:25:07 Imaging Results [...] and Address Organization Details Last Updated DateTime 4 162.56 cm 33.3 kg/m2 31202.9 2 g 98 % 98 % 71 /min 102 mm[Hg] 68 mm[Hg] Karin piña [facility] 4 14:56:06 Date Recorded Body height Body mass index (BMI) Body weight Heart rate Oxygen saturation Oxygen saturation in Arterial blood by Pulse oximetry Systolic blood pressure Diastolic blood pressure Provider Name and Address Organization Details Last Updated DateTime 4 162.56 cm 32.3 kg/m2 04966.3 7 g 68 /min 99 % 99 % 106 mm[Hg] 76 mm[Hg] Karin piña [facility] 4 11:41:42 Date Recorded Body height Body mass index (BMI) Body weight Heart rate Oxygen saturation Oxygen saturation in Arterial blood by Pulse oximetry Systolic blood pressure Diastolic blood pressure Provider Name and Address Organization Details Last Updated DateTime 4 162.56 cm 31.6 kg/m2 37674.1 g 87 /min 99 % 99 % 120 mm[Hg] 74 mm[Hg] Fay Quiros LPN 1 [facility][Note 3],[facility] [address], [place], [address], [facility] 4 11:44:00 Date Recorded Body height Body mass index (BMI) Body weight Oxygen saturation Oxygen saturation in Arterial blood by Pulse oximetry Heart rate Systolic blood pressure Diastolic blood pressure Provider Name and Address Organization Details Last Updated DateTime 5 162.56 cm 30.3 kg/m2 30157.3 6 g 99 % 99 % 72 /min 118 mm[Hg] 72 mm[Hg] Karin piña [facility] 5 11:14:06 Social History Question Answer Notes LastModified by Organizat ion Details LastModified Time Tobacco Smoking Status Former Smoker TAYLOR FREIRE PA-C 1 [facility][Note 3],[facility], [place], [address], [facility] 01/07/2024 14:37:23 What Is Your Level Of Alcohol Consumption? None [email or web address] Information not available 01/07/2024 Which Illicit Or Recreational Drugs Have You Used? Cbd Gummies [email or web address] Information not available 01/07/2024 When Did You Quit Smoking? 6-10yearssin celastcigare tte [email or web address] Information not available 01/07/2024 What Was The Date Of Your Most Recent Tobacco Screening? 01/07/2024 [email or web address] Information not available 01/07/2024 Do You Use Any Illicit Or Recreational Drugs? Yes [email or web address] Information not available 01/07/2024 Sex: Unknown Functional Status None recorded. Mental Status None recorded. Family History Relationship Description Onset Age of this Age Resolved Age Notes LastModified by Organization Details LastModified Time Unspecified Relation Lilliana thyroiditis niece [email or web address] Not available 12/27 14:24:42 Unspecified Relation Malignant tumor of breast half- sister [email or web address] Not available 01/07/2024 14:33:35 Mother Malignant tumor of stomach Not available 2023 14:29:55 Sister Malignant tumor of thyroid gland [email or web address] Not available 2023 14:32:32 Father Malignant lymphoma Not available 2023 14:32:57 Father Malignant melanoma Not available 2023 14:33:05 Father Myocardial infarction x3 [email or web address] Not available 01/06 14:34:22 Father Cerebrovascu lar accident x2 [email or web address] Not available 04/2024 14:34:42 Maternal Uncle Myocardial infarction [email or web address] Not available 01/06 14:35:09 Maternal Uncle Malignant tumor of colon Not available 2024 11:26:32 Notes:brain (maternal), paddy st (maternal), ovarian (maternal), and prostate (paternal) cancer Medical History No medical history recorded. Gynecological History Statement/Question Response Date of Last Pap Smear Most Recent Mammogram Date of Last Colonoscopy Obstetrics History GPAL:G 0 P 0 0 0 0 Immunizations Vaccine Type Date Status Note Provider Nam e and Address Organization Details Recorded Time COVID-19, mRNA, LNP-S, PF, 50 mcg/0.5 mL 05/06/2024 completed Anabelle johnson [place] - [facility] 07/08/2024 09:31:42 Influenza, split virus, trivalent, PF 05/06/2024 completed Anabelle Malcolm null [place] - [facility] 07/08/2024 09:31:42 Tdap 06/29/2022 completed Karin johnson, [facility] 07/15/2024 11:12:19 Past Encounters Encounter ID Performer Location Encounter Start Date Encounter Closed Date Diagnosis/Indication Diagnosis SNOMED-CT Code Diagnosis ICD10 Code Diagnosis Note [id number] TAYLOR FREIRE PA-C Main Office 1 [facility][Note 3],[facility] [address] [place] [address] 01/07/2024 13:59:28 01/07/2024 15:14:40 Patient new to provider [id number] 36390 Z76.89 Patient new to practice, here to establish care. Has not been seen by this office or provider within the last 3 years. Arthritis 8424139 M19.90 - Longstandi ng history of widespread arthritis, diagnosed in mid 20s. Mainly involves cervical spine, SI joint, and ankles. Previous question of rheumatoid component, notes a positive DOMONIQUE in the past. Negative HVLA none 27 antigen testing.- Has been evaluated by rheumatolo gy and orthopedic s. Previously underwent a workup for possible undifferen tiated spondyloar thropathy versus inflammato ry arthritis versus fibromyalg ia. No clear diagnosis, per patient.- Experience s intermitte nt flareups, currently in one at this time.- Has completed physical therapy, radiofrequ ency ablation of right cervical spine, as well as trigger point injections (deemed most helpful). Interested in obtaining repeat trigger point injections , will send referral for such. Not interested in pain medication s, given current sobriety. Temporoman dibular uodll-hcvw-rbkjeqfluv n syndrome 116722924 M26.629 Daily nighttime grinding. Wears nightguard . Previously obtained relief through Botox injections , may pursue again in the future. Attention deficit hyperactivity disorder 730039866 F90.9 Diagnosed with ADHD during childhood. Started on Vyvanse 10 mg. Interested in future medication management with psychiatry , although will plan to titrate as needed in the meantime. Psychiatry referrals provided below. History of bariatric surgical procedure 316799532 Z98.84 Follows a plant-base d diet. On magnesium supplement ation. Will screen for deficienci es, as well. Requesting referral to bariatric dietitian. Screening for cardiovascular system disease 335251388 Z13.6 Diabetes m ellitus screening 302496229 Z13.1 Vitamin D deficiency 347 01327 E55.9 Gastroesop hageal reflux disease without esophagitis 051942339 K21.9 History of GERD, as confirmed by previous endoscopy. Requesting referral at this time. Thyroid di sorder screening 717849395 Z13.29 Tarsal coalitions 643719 08 Q66.89 [id number] TAYLOR FREIRE PA-C Main Office [address] [place] [address] 02/08/2024 13:40:58 02/08/2024 14:32:19 Rheumatoid factor detected 957060747 R76.0 - Consistent ly tested positive since 20s. - looking to transfer care to a new rheumatolo gist (has been followed in the past, has trialed DMARD therapy).- Longstandi ng history of widespread arthritis, diagnosed in mid 20s. Mainly involves cervical spine, SI joint, and ankles. Previous question of rheumatoid component, notes a positive DOMONIQUE in the past. Negative HVLA none 27 antigen testing.- Has been evaluated by rheumatolo gy and orthopedic s. Previously underwent a workup for possible undifferen tiated spondyloar thropathy versus inflammato ry arthritis versus fibromyalg ia. No clear diagnosis, per patient.- Experience s intermitte nt flareups, currently in one at this time.- Has completed physical therapy, radiofrequ ency ablation of right cervical spine, as well as trigger point injections (deemed most helpful). Interested in obtaining repeat trigger point injections , will send referral for such. Not interested in pain medication s, given current sobriety. Hypocalcemia 0183910 E83 .51 On supplement ation, will monitor. Mild deficiency present. May be secondary to history of gastric sleeve. Vitamin D deficiency 347 40827 E55.9 On vitamin d supp, although not consistent ly. Neck pain 83431060 M54.2 Requesting eval & treatment of atraumatic neck pain. Patient hold tension/st ress in neck & shoulders. Underlying history of fibromyalg ia and possible rheumatoid arthritis. Decreased hearing 553024 001 H91.90 Concern of audiology speech processing disorder. Struggles with processing informatio n, particular ly in loud environmen ts. Requests referral as below. Family his tory of malignant melanoma 455823069 Z80.7 Seasonal a llergic rhinitis 657189711 J30.2 Attention deficit hyperactivity disorder 487748176 F90.9 Diagnosed with ADHD during childhood. Started on Vyvanse 10 mg and Straterra in the past.- Interested in future medication management with psychiatry . Completed [employer] intake.- Plans to undergo an evaluation with [facility] in the future for autism screening as well- As we do not have historical medical records of previous prescribin g informatio n related to ADHD medication s, we agreed to defer management to psychology at this time. Patient is understand ing. History of bariatric surgical procedure 469738709 Z98.84 Follows a plant-base d diet. On magnesium supplement ation. No evidence of anemia of B12 deficiency . Reviewed mild deficiency of protein and calcium on CMP. Will continue to monitor. [id number] TAYLOR FREIRE PA-C Main Office 1 [facility][Note 3],[facility] [address] [place] [address] 03/11/2024 14:44:53 03/11/2024 15:25:44 Rheumatoid factor detected 423665429 R76.0 - Consistent ly tested positive since 20s. - looking to transfer care to a new rheumatolo gist (has been followed in the past, has trialed DMARD therapy).- Cristhian yu history of widespread arthritis, diagnosed in mid 20s. Mainly involves cervical spine, SI joint, and ankles. Previous question of rheumatoid component, notes a positive DOMONIQUE in the past. Negative HVLA none 27 antigen testing.- Has been evaluated by rheumatolo gy and orthopedic s. Previously underwent a workup for possible undifferen tiated spondyloar thropathy versus inflammato ry arthritis versus fibromyalg ia. No clear diagnosis, per patient.- Experience s intermitte nt flareups, currently in one at this time.- Has completed physical therapy, radiofrequ ency ablation of right cervical spine, as well as trigger point injections (deemed most helpful). Interested in obtaining repeat trigger point injections , will send referral for such. Not interested in pain medication s, given current sobriety. Currently working with pain management at [facility], planning to obtain trigger point injections and potential Botox in the future.- Patient request that we adjust previous rheumatolo gy referral to [facility]. Hypocalcemia 6858530 E83 .51 On supplement ation, will monitor. Mild deficiency present. May be secondary to history of gastric sleeve. Vitamin D deficiency 347 27363 E55.9 On vitamin d supp, although not consistent ly. Neck pain 55805363 M54.2 Requesting eval & treatment of atraumatic neck pain. Patient hold tension/st ress in neck & shoulders. Underlying history of fibromyalg ia and possible rheumatoid arthritis. Physical therapy referral placed at previous visit. Decreased hearing 403154 001 H91.90 Concern of audiology speech processing disorder. Struggles with processing informatio n, particular ly in loud environmen ts. Upcoming consult with [employer] for audiology screening at [facility]. Family his tory of malignant melanoma 884149530 Z80.7 Referral sent to [facility] previously . Seasonal a llergic rhinitis 465693242 J30.2 Maintained on levocetiri zine 5 mg p.o. daily. Attention deficit hyperactivity disorder 122790809 F90.9 Diagnosed with ADHD during childhood. Started on Vyvanse 10 mg and Straterra in the past.? S ymptoms include difficulty with concentrat ion, difficulty completing tasks, difficult goals with multitaski ng, difficulty with shortened patience, inability to sit still while others are talking- Plans to undergo an evaluation with [facility] in the future for autism screening as well-Histo rical medical medical records reviewed, diagnoses of ADHD and mentioned on 07/18/2023 records from [place], [place]. Negative UDS obtained. Will plan to restart Vyvanse 10 mg p.o. daily at this time, and bridge prescripti on until patient establishe s with [facility] medication provider. Will maintain close follow-up in 1 month to assess medication effectiven ess. Reviewed in detail possible risks, benefits, and side effects, as well as known risk of addiction. History of bariatric surgical procedure [id number] Z98.84 Follows a plant-base d diet. On magnesium supplement ation. No evidence of anemia of B12 deficiency . Reviewed mild deficiency of protein and calcium on CMP. Will continue to monitor. [facility] [id number] Q66.89 Upcoming consult with podiatry scheduled. History of substance abuse [id number] F19.11 Clean for > 19 years. 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 [id number] TAYLOR FREIRE PA-C Main Office 1 [facility][Note 3],[facility] [address] [place] [address] 04/08/2024 11:31:52 04/08/2024 12:47:13 Attention deficit hyperactivity disorder [id number] F90.9 Stable/imp roving on Vyvanse 10 mg.? S ymptoms include difficulty with concentrat ion, difficulty completing tasks, difficult goals with multitaski ng, difficulty with shortened patience, inability to sit still while others are talking- Plans to undergo an evaluation with [facility] in the future for autism screening as well.- Awaiting placement with [facility] medication provider. History of bariatric surgical procedure [id number] Z98.84 Follows a plant-base d diet. On magnesium supplement ation. No evidence of anemia of B12 deficiency . Reviewed mild deficiency of protein and calcium on CMP. Will continue to monitor. Major depr essive disorder [id number] F32.9 [id number] TAYLOR FREIRE PA-C Main Office [address] [place] [address] 04/28/2024 15:20:06 05/06/2024 03:30:53 Gastroesophageal reflux disease [id number] K21.9 Tight chest 39282171 R07 .89 Palpitations 09983335 R0 0.2 [id number] TAYLOR FREIRE PA-C Main Office [address] [place] [address] 05/23/2024 11:34:30 05/23/2024 12:15:52 Palpitations [id number] R00.2 Improved/s table in nature. Pt declines holter monitor/ec ho at this time.If symptoms worsen, may consider in the future. Laryngopha ryngeal reflux 528806453 K21.9 - Assessment : Patient reports improvemen t in symptoms with dietary changes for reflux management . She has been avoiding oils and junk food, which has helped reduce symptoms.- Plan: Continue dietary changes and lifestyle modificati ons, including eating dinner earlier and using an adjustable bed to elevate the head during sleep. Continues famotidine 20 mg po tid prn. Taper off omeprazole slowly due to long-term use and side effects. Referral to ENT for further evaluation of reflux and potential esophageal concerns.- Follow-up: Monitor symptoms and adjust lifestyle modificati ons as needed. Follow up with ENT as per referral.- Education: Educate patient on the importance of maintainin g dietary changes and monitoring symptoms during omeprazole tapering. Attention deficit hyperactivity disorder [id number] F90.9 Stable/imp roving on Vyvanse 10 mg.? S ymptoms include difficulty with concentrat ion, difficulty completing tasks, difficult goals with multitaski ng, difficulty with shortened patience, inability to sit still while others are talking- Plans to undergo an evaluation with [facility] in the future for autism screening Jun 2024- Awaiting placement with [facility] medication provider.- Will increase to vyvanse 20 mg po daily; will monitor for sx and reassess in 6 weeks at annual exam- Education: Discuss potential side effects of Vyvanse and the importance of adherence to the prescribed dosage. Arthritis 5962752 M19.90 - Longstandi ng history of widespread arthritis, diagnosed in mid 20s. Mainly involves cervical spine, SI joint, and ankles. Previous question of rheumatoid component, notes a positive DOMONIQUE in the past. Negative HBLA ag testing.- Currently followed/m anaged by [facility]. On celebrex 200 mg po bid x 6 mo. Suspected undifferen tiated, inflammato ry arthritis. [id number] TAYLOR FREIRE PA-C Main Office 1 [facility] [address] [place] [address] 07/15/2024 11:02:34 07/15/2024 11:53:14 Active or passive immunization [id number] Z23 Up-to-date on tetanus, flu, and covid immunizati on. Adult heal th examination 221658098 Z00.00 No longer obtains Pap smears in the setting of historical elective hysterecto my.Due for mammogram, will order as below.Up-t o-date on colon cancer screening (obtained at age 46), due for repeat at age 51 given family history.Up coming eye exam next week. Upcoming dental exam in September 2024. Screening for malignant neoplasm of breast 187198378 Z12.39 Gastroesop hageal reflux disease 560797643 K21.9 Attention deficit hyperactivity disorder 568620826 F90.9 ? Symptoms include difficulty with concentrat ion, difficulty completing tasks, difficult goals with multitaski ng, difficulty with shortened patience, inability to sit still while others are talking- Plans to undergo an evaluation with [facility] in the future for autism screening Jun 2024- Awaiting placement with [facility] medication provider.- Will increase to vyvanse 30 mg po daily; will monitor for sx and reassess in 3 months.- Education: Discuss potential side effects of Vyvanse and the importance of adherence to the prescribed dosage. Laryngopha ryngeal reflux [id number] K21.9 - Assessment : Patient reports improvemen [...] by Organization Details LastModified Time None Recorded Advance Directives Directive None Recorded Payers Encounter Date Sequence Insurance Name Policy Number Policy Devries Covered Member ID Devries Member ID Guarantor Name 03/11/2024 1 [place] Sonya Felshman [id number] Sonya Felshman 04/08/2024 1 [place] [employer] Sonya Felshman [id number] Sonya Felshman 04/28/2024 1 [place] Sonya Felshman [id number] Sonya Felshman 05/23/2024 1 [place] Sonya Felshman [id number] Sonya Felshman 07/15/2024 1 [place] [employer] Sonya Felshman [id number] Sonya Felshman Notes Date Note Type Note Provider Name and Address Organization Details Recorded Time 03/11/2024 text/html Patient presents for a follow-up visit to discuss management of chronic problems as below. Also discussed in detail in assessment and plan. Patient reports that she would like to adjust previous rheumatology referral.As medical records have been obtained, she would like to discuss further management of ADHD symptoms; we had previously held off on this in the absence of any available medical records.Patient has begun seeing a therapist at [facility], currently on waiting list for medication provider.Has upcoming consultation scheduled with podiatry, pain management, [facility], physical therapy, [facility]. Past medical history - Patient has a history of addiction - Patient has been diagnosed with ADD - Patient has been diagnosed with arthritis at the age of 46 Social history - Patient is currently not working - Patient consumes cannabis - Patient has a history of addiction Current medications - Patient has been prescribed Vyvanse 10mg - Patient has been prescribed Baclofen in the past TAYLOR FREIRE PA-C [address] [facility],[address], [place], [address], [facility] 03/11/2024 15:41:29 04/08/2024 text/html Chief complaintFollow-up consultation for Vyvanse medication. History of present illness- Patient has been taking Vyvanse for a few days, but forgot to pick it up for a week and didn't take it while sick for a week and a half.- Reports not noticing major changes when on the medication, but boyfriend observes patient to be calmer.- Reports brief moments of feeling more present and less overwhelmed.- Reports experiencing dry mouth, especially at night, which patient suspects might be due to a combination of Vyvanse and cbd gummies patient takes at night.- Patient has been trying to increase water intake to combat dry mouth.- Patient has been experiencing depression and major anxiety, but is unsure if it's due to circumstances or a need for medication adjustment. Past medical history- History of ADHD.- History of depression.- History of hypoglycemia.- History of gastric bypass surgery.- History of TMJ disorder and missing teeth. Past surgical historyGastric bypass surgery. Social history- Patient has a history of smoking, which patient believes contributes to lingering coughs after being sick.- Patient is currently not working.- Patient is in the process of switching therapists.- Patient has been trying to improve diet and water intake, and has been considering intermittent fasting. Current medications- Vyvanse, taken as needed.- Gummies, taken at night. Vitals- Blood pressure stable, low 100s for systolic.- Pulse at 68. TAYLOR FREIRE PA-C [address], [place], [address], [facility] - [facility] 05/05/2024 15:44:19 04/28/2024 text/html Sonya presents f or a concern regarding chest tightness. As of last weekend, pt started feeling shortness of breath and chest heaviness. Not relieved with albuterol. Sx present intermittently throughout the day. Experienced palpitations throughout the day, which is normal for her, although wonders if she may be experiencing more frequently in last few days. Palpitations described as racing feeling, worse with laying, Worsening sleep x 1 week. [place] more anxious. Waking up hot in the morning. She was seen in ED on 04/27/24 where she was tested for pneumonia, pneumothorax, heart attack, and blood clot, all of which were ruled out. Reports continued intermittent, non-radiating chest tightness. Unclear on timing or frequency of sx. Non exertional. No clear pattern of exacerbating factors/timing of sx. Has noticed a bit more of a cough. Has completed a negative cardiac w/u in the past. Pt notes she has been under more stress recently. Of note, her mother at age 50 from stomach cancer. Today, pt notes intermittent central chest tightness. Wonders if this is related to her GERD. On omeprazole 40 mg and famotidine prn. Diet has been poor recently, fatty food is a trigger for sx. Voice is more hoarse than usual. Does not feel sick. Has not completed a sleep study in the past. Past medical history - Patient has a history of GERD and TMJ disorder. - She also has a history of palpitations. Past surgical history Patient has a history of bypass surgery. Family history Patient's father had a history of heart disease. Social history Patient reported being under a lot of stress recently. Current medications - Patient is currently on omeprazole and famotidine. - She also uses an albuterol inhaler. Lab results Recent labs including a troponin, D-dimer, and BNP were all normal. Imaging results Recent chest x-ray was normal. TAYLOR FREIRE PA-C 1 [facility][Note 3],[address], [place], [address], [facility] 05/05/2024 15:46:45 05/23/2024 text/html Sonya García i s a 48-year-old female who presents with concerns of laryngopharngeal reflux and dyspnea. She reports that she has recently noticed shortness of breath, which she had not previously associated with her reflux symptoms. Following a telehealth visit, she researched her condition and discovered information on laryngopharyngeal reflux (LPR) from Dr. Gideon Clark, which suggested that her respiratory symptoms might be related to reflux affecting her sinuses and breathing. In response, she has been implementing dietary and lifestyle changes, including elevating her adjustable bed, no longer snacking after dinner, and avoiding most oils except olive oil, which she believes does not exacerbate her symptoms. She has also made significant dietary changes (reduced consumption of junk food, fried foods, garlic) and plans to further modify her diet after an online LPR detox program. Additionally, she is attempting to taper off omeprazole, which she has been taking for 8 years, due to concerns about its long-term side effects. She reports occasional palpitations and dyspnea, which have improved recently. She denies any other significant changes in her health. TAYLOR FREIRE PA-C 1 [facility] [address], [place], [address], [place] [facility] 05/23/2024 12:29:33 07/15/2024 text/html Sonya García, 48-year-old female, is [...] dose and would benefit from increased effectiveness. TAYLOR FREIRE PA-C 1 [facility][Note 3],[facility], [place], [address], [place] 07/15/2024 13:03:05 OBGyn Episode No OBEpisode recorded.
== END 2024-07-26 15:19 | disposition home or self-care (01) ==
PROVIDERS: PCP Family Medicine; Visit Provider Student in an Organized Health Care Education/Training Program
DX: M45.0 Ankylosing spondylitis of multiple sites in spine (principal); Z79.620 Long term (current) use of immunosuppressive biologic
CPT/HCPCS: 99214

== ENCOUNTER 2024-11-22 09:12 | Outpatient (REF) | payer MEDICAID, SELFPAY ==
[2024-11-22 10:23] LABS: MANUAL DIFF FLAG NO
[2024-11-22 10:47] LABS: Basophils Percent Auto 0.5 % (0-2); Eosinophils Percent Auto 0.8 % (0-4); Hematocrit 39.2 % (37.0-47.0); Hemoglobin 12.5 g/dl (12.0-16.0); Imm Gran Abs Auto 0.01 X10*3/uL (0.00-0.03); Imm Gran Pct Auto 0.3 % (0.0-0.4); Lymphocytes Absolute Auto 1.6 X10*3/uL (1.2-4.9); Lymphocytes Percent Auto 42.6 % (20-40); Mean Corpuscular HGB Conc 31.9 g/dl (31.0-35.0); Mean Corpuscular Hemoglobin 27.7 pg (27.0-33.0); Mean Corpuscular Volume 86.7 fL (80.0-98.0); Monocytes Absolute Auto 0.3 X10*3/uL (0.1-1.2); Monocytes Percent Auto 8.4 % (2-11); Neutrophils Absolute Auto 1.8 x10*3/uL (2.0-8.3); Neutrophils Percent Auto 47.4 % (45-73); Platelet Count 163 X10*3/uL (160-400); Red Blood Count 4.52 X10*6/uL (4.20-5.50); White Blood Count 3.8 X10*3/uL (4.8-10.8)
[2024-11-22 11:24] LABS: Erythrocyte Sedimentation Rate 4 MM/HR (0-20)
[2024-11-22 11:40] LABS: Alanine Aminotransferase 30 U/L (0-31); Albumin Level 4.5 g/dL (3.5-5.0); Alkaline Phosphatase 71 U/L (39-117); Anion Gap 11 (12-20); Aspartate Amino Transferase 29 U/L (5-31); Bilirubin Total 0.4 mg/dL (0.0-1.0); Blood Urea Nitrogen 10 mg/dL (9-16); C Reactive Protein < 0.04 mg/dL (< or = 0.50); Calcium 9.4 mg/dL (8.4-10.2); Carbon Dioxide 30 mmol/L (22-29); Chloride 106 mmol/L (96-108); Estimated Glomerular Filt Rate > 60; Glucose Random 93 mg/dL (60-115); Potassium 5.2 mmol/L (3.3-5.1); Sodium 142 mmol/L (135-145); Total Protein 6.9 g/dL (6.5-8.0)
== END 2024-11-22 09:13 | disposition home or self-care (01) ==
LOC: HO.LAB 09:12
PROVIDERS: PCP Family Medicine; Visit Provider Student in an Organized Health Care Education/Training Program
DX: M15.9 Polyosteoarthritis, unspecified (principal); M45.9 Ankylosing spondylitis of unspecified sites in spine; M45.0 Ankylosing spondylitis of multiple sites in spine
CPT/HCPCS: 36415; 80053; 85025; 85652; 86140; 99212

== ENCOUNTER 2024-11-22 09:12 | Outpatient (AMB) | payer MEDICAID, SELFPAY ==
--- NOTE | 2024-11-22 09:13 | A.OFFVIS_ITS ---
Vital Signs 11/22/24 09:22 Height 5 ft 4 in Weight 165 lb 9.074 oz BMI 28.4 BP 112/70 Blood Pressure Location Rt brachial Position Sitting Pulse 68 Pulse Source Pulse Oximeter Pulse Oximetry (%) 99 Oxygen Delivery Method Room Air Intake Visit Reasons: hand pain Intake Note: Patient presents for hand pain follow up. Allergies No Known Allergies Allergy (Verified 11/22/24 09:20) Medication List - Last Reconciled 11/22/24 by Elena Rodriguez MD adalimumab (Humira(CF) Pen) 40 mg subcutaneously; 30 days calcium carbonate-vitamin D3 600 mg-12.5 mcg (500 unit) (Calcium with Vit D3) caps PO empty container (Sharps Container) As directed famotidine 40 mg PO DAILY ferrous sulfate (Curly-Time) 325 mg PO DAILY gabapentin 300 mg PO DAILY levocetirizine (Xyzal) 5 mg PO DAILY lisdexamfetamine (Vyvanse) 30 mg PO DAILY magnesium oxide 500 mg PO DAILY mecobalamin (vitamin B12) mcg PO [id number] carb-vit K 18 mg-400 mcg- 500 mg-50 mcg (Women's Multivitamin) tabs PO HPI Comments Details: Patient is a 48-year-old female status post gastric bypass surgery and 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 She was on Celebrex at that time however despite the Celebrex continued to back pain and joint pain loading evidence of dactylitis based on photo that patient brought to the visit. She was started on Humira Today, Did not notice any improvement on Humira Has new nodules at the right index DIP Rheumatologic History: Seronegative spondyloarthritis - chronic back pain since age 21, Elevated inflammatory markers, dactylitis, Initial history: Patient states that she started developing back pain in her 20s but at that time she was morbidly obese. She got gastric bypass and lost over 250 lb. After the rate loss she noted that the back pain and even the knee pain improved. However about 1-2 years ago she started noticing back pain that would improve with movement and worsen long prolonged periods of rest. She also started to notice shoulder pain and neck pain as well as knee pain. She denies any hand, wrist, feet, elbow pain. She has been seen and evaluated by funnel setter and serologies showed elevated rheumatoid factor however her exam was never consistent with inflammatory arthritis and show she was never given the diagnosis of rheumatoid arthritis. 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 She has gotten MRIs of the C-spine and LS-spine (reports reviewed) which showed degenerative disc disease throughout her spine. Her blood work has never shown elevated ESR CRP based on what I was shown. She does not have a history of inflammatory eye disease, dactylitis, psoriasis or rash. She has tried methotrexate, sulfasalazine and duloxetine in the past with no improvement in her pain. She does have a strong family history of osteoarthritis and autoimmune disease specifically thyroid disease including grades. Current Rheumatology Medication(s): Humira 40mg SC every 2 weeks [facility] Medical History (Updated 11/22/24 @ 09:37 by Elena Rodriguez MD) Polyarticular osteoarthritis Lumbosacral disc disease Mental health disorder Heart palpitations Hepatitis C Fatigue Osteoarthritis Asthma Anemia Surgical History H/O: hysterectomy Gastric bypass status for obesity Social History (Updated 11/22/24 @ 09:22 by JOSETTE Miranda) Household Members: Children Housing: Apartment Alcohol intake: former Comment: Rare Patient Tobacco Use Status: Former Tobacco user Cigarettes Per Day: 1 Years Smoked: 28 Review of Systems Const Details: Review of Systems Constitutional: Denies fever, chills, weight loss ENT: Denies vision changes, eye pain or eye redness, dental caries, dry mouth GI: Denies nausea, vomiting, diarrhea, abdominal pain, change in BM Pulm: Denies SOB, SMILEY, hemoptysis, wheezing Cards: Denies chest pain, palpitations Skin: Denies Raynaud's, rash, nail changes, photosensitivity, RUBBER PROCESS HAND: Denies headaches, weakness, paresthesias, recurrent falls MSK: as per HPI All other systems reviewed and are unremarkable except noted above Physical Exam Vital Signs: BMI result Body Mass Index 28.4 Vital signs reviewed Physical Examination CONSTITUITIONAL Patient alert and cooperative. Well appearing and in no apparent painful distress HEENT Conjunctiva and sclera clear. ?Pupils equal round and reactive to light. ?No lymphadenopathy. ?Normal dentition. No oral or nasal ulcers noted. No evidence of discoid rash to the sergio of ears CHEST/RESPIRATORY SYSTEM Normal respiratory effort and able to speak in complete sentences. ?Clear to auscultation bilaterally. ?No crackles, rales, rhonchi, wheezes heard. CARDIAC SYSTEM Regular rate and rhythm. ?S1 and S2 heard no murmurs. ?Radial pulses intact bilaterally MSK Hands: ?Good chassis inspector strength bilaterally - 5/5. ?No deformities noted. ?No synovitis noted to the MCPs, PIPs or DIPs. ?No tenderness to palpation of these joints. Redness over the DIPs and Herbeden's nodes Wrists: ?Full range of motion at the wrists without pain. ?No tenderness to palpation or synovitis noted to the wrists. Elbows: Full range of motion without pain. No tenderness, weakness, swelling, increased warmth or erythema. Shoulders: Full range of motion to passive movement. Hips: Full range of motion without pain. Hip bursa: No tenderness to palpation Knees: ?Full range of motion. ?No tenderness, swelling, increased warmth or erythema.?No effusion or crepitations Ankles: Full range of motion. ?No tenderness, swelling, increased warmth or eryt peggy.? Feet: ?Negative squeeze test. ?No tenderness to palpation or swelling of the MTPs. Tender points:??No tenderness to palpation of the neck, shoulders, chest, elbows, hips, buttocks or knees. Wong's test normal SKIN Skin intact without rashes. Results Reviewed Results Reviewed: Laboratory Tests 07/26/24 15:46 WBC 3.9 L RBC 4.43 Hgb 12.3 Hct 39.0 Plt Count 185 ESR 6 Sodium 142 Potassium 3.8 Chloride 103 Carbon Dioxide 31 H BUN 7 L Creatinine 0.73 AST 21 ALT 22 Alkaline Phosphatase 57 C-Reactive Protein < 0.04 Rheumatology labs 07/26/24 15:46 HLA-B27 Negative Infectious serologies 07/26/24 15:46 Hepatitis A IgM Ab Nonreactive Hep Bs Antigen Negative Hep Bs Antibody REACTIVE Hep B Core Total Ab Reactive Hep B DNA copies/mL NOT DETECTED Hep B DNA (IU/mL) NOT DETECTED Hepatitis C Ab (EIA) Reactive H Hep C Viral Load <15 NOT DETECTED Hep C Viral Load Log <1.18 NOT DETECTED TB Test (T-Spot) Com Negative Assessment & Plan Assessment & Plan (1) Polyarticular osteoarthritis: Code(s): M15.9 - Polyosteoarthritis, unspecified Category: Medical Plan: #Polyarticular OA Patient initially thought to have seronegative spondyloarthritis however despite treatment with methotrexate, sulfasalazine and Humira she has not had any improvement in her pain. Imaging is consistent with degenerative joint disease and I do think this patient has polyarticular osteoarthritis and no underlying ankylosing spondylitis. Plan - Increase gabapentin 300mg TID - Stop Humira - Yoga and exercises - Topical diclofenac for hands - RTC 1 year Plan I spent 30 minutes reviewing the record and labs, taking a history, examining the patient, discussing the treatment plan and documenting in the medical record Orders: Orders Erythrocyte Sedimentation Rate Today M15.9 - Polyosteoarthritis, unspecified Complete Blood Count Auto Diff Today M15.9 - Polyosteoarthritis, unspecified Comprehensive Met. Panel Today M15.9 - Polyosteoarthritis, unspecified C Reactive Protein Today M15.9 - Polyosteoarthritis, unspecified Medications: Discontinued empty container (Sharps Container) Discontinued Reason: Doctor's Order As directed 1 ea 4RF Z79.620 - intermission coordinator (current) use of immunosuppressive biologic adalimumab (Humira(CF) Pen) Discontinued Reason: Doctor's Order (0.4 mL) 40 mg subcutaneously; 30 days 2 ea 4RF M45.9 - Ankylosing spondylitis of unspecified sites in spine Coding Level of Care Code Est Pt Level 4 (18318) Diagnoses Polyarticular osteoarthritis M15.9
[2024-11-22 09:22] VITALS: BP 112/70; PULSE 68; O2SAT 99; BMI 28.4
--- OUTSIDE RECORDS SUMMARY | 2024-11-22 09:45 | XMS_ITS | Data Portability ---
Author Organization [facility], [employer] Address [address] [place] [id number] Assessment Encounter Date Assessment Date Assessment LastModified by Organization Details LastModified Time 05/23/2024 05/23/2024 During this encounter, 2 of [...] or treatment (one needed): Prescription Drug management Not available 05/23/2024 12:25:53 07/15/2024 07/15/2024 The [...] and relevant notes to the ENT in [place], including information about the patient's reflux. - Prescribe famotidine 20 mg with instructions to take one tablet four times a day as needed. This is to assist in transitioning off omeprazole. - Prescribe Vyvanse 30 mg to be filled at [facility] in [place]. Monitor for any side effects or changes [...] or treatment (one needed): Prescription Drug management [email or web address] Not available 07/15/2024 13:00:24 09/07/2024 09/07/2024 1. Solar Lentigo - Observation. Return if change. Sun protection stressed 2. Melasma - start vitamin C serum, SPF 30 recommended, hat and sunglasses and tretinoin 0.25% nightly. 3. Nevi- Observation. Return if change Warning signs of malignancy melanoma stressed Skin Cancer talk given - warning signs of malignancy, ACDEs Sun protection talk given - SPF 30 or higher must be applied and reapplied every 2-3 hours. Protective clothing such as hats, sunglasses and UPF clothing recommended. Avoidance of the strongest sun hours from 10am-4pm. Warning signs of melanoma discussed. Monthly self exams stressed. Return 1 year for repeat CSE I, Dr. Sebastián Griffin, examined the patient, reviewed medical history, and discussed risks and benefits of different therapeutic options available. The treatment plan above was discussed with Anabelle Oakes PA-C, who concurs and will execute this treatment plan under the guidance of Dr. Sebastián Griffin. Dr. Griffin is physically present in the office and available for immediate consultation. [email or web address] Not available 09/07/2024 12:30:42 09/09/2024 09/09/2024 Assessment - Restless Leg Syndrome (RLS) is well-managed with gabapentin, with only two episodes since starting the medication. - Fibromyalgia was initially considered by the pan devulcanizer but is not currently believed to be present. - Arthritis is being treated with Humira, with no noticeable improvement yet after the second injection. - Attention Deficit Hyperactivity Disorder (ADHD) is confirmed by re-evaluation, and Vyvanse is being used for management. - Anxiety is present, potentially exacerbated by personal life stressors and possibly influenced by Vyvanse. Plan - Adjust the gabapentin prescription to reflect the current usage pattern: 300 mg at breakfast, 600 mg at lunch, and an additional 100 mg before bedtime. The prescription wording will be updated to ensure proper pharmacy instructions. - Prescribe Zyrtec to address ongoing allergy symptoms. The prescription will be sent to the pharmacy, and insurance coverage will be checked. - Order a metabolic panel to monitor protein, liver, and kidney function, especially considering the patient's dietary changes and history of gastric bypass. This will be part of the annual lab work, which includes screening for diabetes and checking cholesterol levels. - Schedule a follow-up appointment on October 17 to reassess medication efficacy and make any necessary adjustments. Appointments - Follow-up appointment on October 17, 2024, to reassess medications. During this encounter, 2 of the 3 elements of MDM addressed: (1)Number and Complexity of problems: (2)Amount/Complex ity of data (need 1 out of 3 categories): Category 3: Discussion of management or test interpretation (3)Moderate Risk of morbidity from additional diagnostic testing or treatment (one needed): Prescription Drug management Not available 09/12/2024 08:16:43 10/21/2024 10/21/2024 Assessment - Schedule a follow-up appointment in approximately 6 weeks to evaluate the effectiveness of the new medication regimen and make any necessary adjustments. During this encounter, 2 of the 3 elements of MDM addressed: (1)Number and Complexity of problems: 1 or more chronic illness with exacerbation, progression, or side effects of treatment (2)Amount/Complex ity of data (need 1 out of 3 categories): Category 3: Discussion of management or test interpretation (3)Moderate Risk of morbidity from additional diagnostic testing or treatment (one needed): Prescription Drug management [email or web address] Not available 10/22/2024 13:19:52 Plan of Treatment Reminders Order Date Submit Date Provider Last Modified By Organization Details Last Modified Time Details Appointments FOLLOW UP 2024 08:00A M TAYLOR FREIRE PA-C Not available Not available Not available Dermatolo gy CSE 15 2025 10:00A M FÁTIMA NUNEZ Not available Not available Not available Lab CMP, serum or plasma 2024 025 [facility], [address], [place], [address], 09/16/2024 06:08:13 CBC 2024 025 [facility], [address], [place], [address], 09/16/2024 06:08:13 lipid panel, serum 2024 025 [facility], [address], [place], [address], 09/16/2024 06:08:14 HbA1c (hemoglob in A1c), blood 2024 025 [facility], [address], [place], [address], 09/16/2024 06:08:15 cobalamin and folate panel, serum 2024 025 [facility], [address], [place], [address], 09/16/2024 06:08:14 magnesium , serum or plasma 2024 025 [facility], [address], [place], [address], 09/16/2024 06:08:16 vitamin D, 25-hydrox y, total, serum 2024 025 [facility], [address], [place], [address], 09/16/2024 06:08:15 ferritin, serum or plasma 2024 025 [facility], [address], [place], [address], 09/16/2024 06:08:16 Referral otolaryng ologist referral 2024 025 [facility], [place], [address], 07/27/2024 09:13:48 otolaryng ologist referral 2023 024 [email or web address] Not available 06/01/2024 11:31:57 Procedures None recorded. Surgeries None recorded. Imaging MAMMO, screening , digital, bilateral 2024 025 [facility], [address], [place], [address], 07/20/2024 15:35:30 Medication Orders dextroamp hetamine- amphetami ne ER 20 mg 24hr capsule,e xtend release 2024 025 [id number], [address] [place] [address], [address], 10/22/2024 13:05:22 famotidin e 20 mg tablet 2024 025 [id number] [address] [place] [address], [address], 10/22/2024 13:20:34 cetirizin e 10 mg tablet 2024 025 [id number], [address], [place], [place], [id number], 09/12/2024 08:15:16 gabapenti n 100 mg capsule 2024 025 [id number], [address], [place], [place], [id number], 09/12/2024 08:15:18 gabapenti n 300 mg capsule 2024 025 [facility], [address], [id number], 09/12/2024 08:15:17 tretinoin 0.025 % topical cream 2024 025 [facility], [address], [place], [address], 09/09/2024 12:01:42 famotidin e 20 mg tablet 2024 025 [facility], [address], [place], [place], [phone], 07/15/2024 12:56:08 Vyvanse 30 mg capsule 2024 025 [facility], [address] [place] [place], [id number], 09/09/2024 10:24:56 Patient TargetsNo targets recorded. Patient Instructions Encounter Date Encounter Id Patient Instructions Last Modified By Organization Details Last Modified Time 05/23/2024 [id number] Patient Instruct ions for Sonya Nikoleacewilfrido Date: May 23, 2024 Elizabeth Hassan, Thank you for visiting [facility]. Here are your instructions to help manage [...] enjoy your holidays! Warm regards, Taylor Freire [facility] Not available 05/23/2024 12:29:05 Reason for Referral [employer] Reader Referral fo r Laryngopharyngeal reflux Referring Physician: Taylor Freire, Family Medicine, Encounter Date: 05/23/2024 [employer] Reader Referral fo r Laryngopharyngeal reflux Referring Physician: Taylor Freire, [facility], Encounter Date: 07/15/2024 Results Created Date Observation Date Name Description Value Unit Range Abnormal Flag Note LastModifiedBy Organization Detail LastModifiedTime 09/16/19 25 09/15/2024 COMP. METAB OLIC PANEL (14) glucose 85 mg/dL 70-99 normal Not Available [facility] ([facility]) [address] [place], [address], 09/16/2024 06:08:12 09/16/19 25 09/15/2024 COMP. METAB OLIC PANEL (14) BUN 10 mg/dL 6-24 normal Not Available [facility] ([facility]) [address] [place], [address], 09/16/2024 06:08:12 09/16/19 25 09/15/2024 COMP. METAB OLIC PANEL (14) creatinine 0.87 mg/dL 0.57-1 .00 normal Not Available [facility] ([facility]) [address] [place], [address], 09/16/2024 06:08:12 09/16/19 25 09/15/2024 COMP. METAB OLIC PANEL (14) eGFR 82 mL/mi n/1.7 3 >59 normal Not Available [facility] ([facility]) [address] [place], [address], 09/16/2024 06:08:12 09/16/19 25 09/15/2024 COMP. METAB OLIC PANEL (14) BUN/creatini ne ratio 11 9-23 normal Not Available [facility]) [address] [place], [address], 09/16/2024 06:08:12 09/16/19 25 09/15/2024 COMP. METAB OLIC PANEL (14) sodium 143 mmol/ L 134-14 4 normal Not Available [facility] ([facility]) [address] [place], [address], 09/16/2024 06:08:12 09/16/19 25 09/15/2024 COMP. METAB OLIC PANEL (14) potassium 5.1 mmol/ L 3.5-5. 2 normal Not Available [facility] ([facility]) [address] [place], [address], 09/16/2024 06:08:12 09/16/19 25 09/15/2024 COMP. METAB OLIC PANEL (14) chloride 103 mmol/ L 96-106 normal Not Available [facility] ([facility]) [address] [place], [address], 09/16/2024 06:08:12 09/16/19 25 09/15/2024 COMP. METAB OLIC PANEL (14) carbon dioxide, total 27 mmol/ L 20-29 normal Not Available [facility] ([facility]) [address] [place], [address], 09/16/2024 06:08:12 09/16/19 25 09/15/2024 COMP. METAB OLIC PANEL (14) calcium 9.5 mg/dL 8.7-10 .2 normal Not Available [facility] ([facility]) [address] [place], [address], 09/16/2024 06:08:12 09/16/19 25 09/15/2024 COMP. METAB OLIC PANEL (14) albumin 4.4 g/dL 3.9-4. 9 normal Not Available [facility] ([facility]) [address] [place], [address], 09/16/2024 06:08:12 09/16/19 25 09/15/2024 COMP. METAB OLIC PANEL (14) bilirubin, total 0.4 mg/dL 0.0-1. 2 normal Not Available [facility] ([facility]) [address] [place], [address], 09/16/2024 06:08:12 09/16/19 25 09/15/2024 COMP. METAB OLIC PANEL (14) alkaline phosphatase 63 IU/L 44-121 normal Not Available [facility] [address] [place], [address], 09/16/2024 06:08:12 09/16/19 25 09/15/2024 COMP. METAB OLIC PANEL (14) AST (SGOT) 20 IU/L 0-40 normal Not Available [facility] ([facility]) [address] [place], [address], 09/16/2024 06:08:12 09/16/19 25 09/15/2024 COMP. METAB OLIC PANEL (14) ALT (SGPT) 16 IU/L 0-32 normal Not Available [facility] ([facility]) [address] [place], [address], 09/16/2024 06:08:12 09/16/19 25 09/16/2024 COMP. METAB OLIC PANEL (14) protein, total 6.0 g/dL 6.0-8. 5 normal Not Available [facility] ([facility]) [address] [place], [address], 09/16/2024 06:08:12 09/16/19 25 09/16/2024 COMP. METAB OLIC PANEL (14) globulin, total 1.6 g/dL 1.5-4. 5 Not Available [facility] ([facility]) [address] [place], [address], 09/16/2024 06:08:12 09/16/19 25 09/15/2024 CBC, PLATE LET, NO DIFFE RENTI AL WBC 3.6 x10e3 /uL 3.4-10 .8 normal Not Available [facility] ([facility]) [address] [place], [address], 09/16/2024 06:08:13 09/16/19 25 09/15/2024 CBC, PLATE LET, NO DIFFE RENTI AL RBC 4.60 x10e6 /uL 3.77-5 .28 normal Not Available [facility] ([facility]) [address] [place], [address], 09/16/2024 06:08:13 09/16/19 25 09/15/2024 CBC, PLATE LET, NO DIFFE RENTI AL hemoglobin 12.8 g/dL 11.1-1 5.9 normal Not Available [facility] ([facility]) [address] [place], [address], 09/16/2024 06:08:13 09/16/19 25 09/15/2024 CBC, PLATE LET, NO DIFFE RENTI AL hematocrit 39.6 % 34.0-4 6.6 normal Not Available [facility] ([facility]) [address] [facility], [place], [address], 09/16/2024 06:08:13 09/16/19 25 09/15/2024 CBC, PLATE LET, NO DIFFE RENTI AL MCV 86 fL 79-97 normal Not Available [facility] ([facility]) [address] [place], [address], 09/16/2024 06:08:13 09/16/19 25 09/15/2024 CBC, PLATE LET, NO DIFFE RENTI AL MCH 27.8 pg 26.6-3 3.0 normal Not Available [facility] ([facility]) [address] [place], [address], 09/16/2024 06:08:13 09/16/19 25 09/15/2024 CBC, PLATE LET, NO DIFFE RENTI AL MCHC 32.3 g/dL 31.5-3 5.7 normal Not Available [facility] ([facility]) [address] [place], [address], 09/16/2024 06:08:13 09/16/19 25 09/15/2024 CBC, PLATE LET, NO DIFFE RENTI AL RDW 12.0 % 11.7-1 5.4 Not Available [facility] ([facility]) [address] [facility], [place], [address], 09/16/2024 06:08:13 09/16/19 25 09/15/2024 CBC, PLATE LET, NO DIFFE RENTI AL platelets 143 x10e3 /uL 150-45 0 below low normal Not Available [facility] ([facility]) [address] [place], [address], 09/16/2024 06:08:13 09/16/19 25 09/15/2024 CBC, PLATE LET, NO DIFFE RENTI AL NRBC MOLD DESIGN ENGINEER Not Available [facility] ([facility]) [address] [place], [address], 09/16/2024 06:08:13 09/16/19 25 09/15/2024 LIPID PANEL cholesterol, total 176 mg/dL 100-19 9 normal Not Available [facility] ([facility]) [address] [place], [address], 09/16/2024 06:08:14 09/16/19 25 09/15/2024 LIPID PANEL triglyceride s 74 mg/dL 0-149 normal Not Available [facility]) [address] [place], [address], 09/16/2024 06:08:14 09/16/19 25 09/15/2024 LIPID PANEL HDL cholesterol 86 mg/dL >39 normal Not Available [facility] [address] [place], [address], 09/16/2024 06:08:14 09/16/19 25 09/15/2024 LIPID PANEL VLDL cholesterol emanuel 14 mg/dL 5-40 Not Available [facility] [address] [place], [address], 09/16/2024 06:08:14 09/16/19 25 09/15/2024 LIPID PANEL LDL chol calc ([facility]) 76 mg/dL 0-99 Not Available [facility] [address] [facility], [place], [address], 09/16/2024 06:08:14 09/16/19 25 09/15/2024 LIPID PANEL LDL calc comment: MOLD DESIGN ENGINEER Not Available [facility] ([facility]) [address] [facility], [place], [address], 09/16/2024 06:08:14 09/16/19 25 09/16/2024 VITAM IN B12 AND FOLAT E vitamin B12 593 pg/mL 232-12 45 normal Not Available [facility] ([facility]) [address] [place], [address], 09/16/2024 06:08:14 09/16/19 25 09/16/2024 VITAM IN B12 AND FOLAT E folate (folic acid), serum >20.0 NG/mL >3.0 A serum folat e jose ntrat ion of less than 3.1 ng/mL is consi dered to repre sent clini emanuel defic iency . Not Available [facility] ([facility]) [address] [facility], [place], [address], 09/16/2024 06:08:14 09/16/19 25 09/16/2024 HEMOG LOBIN A1C hemoglobin A1C 5.5 % 4.8-5. 6 normal Predi abete s: 5.7 - 6.4 Diabe sruthi: >6.4 Glyce misty contr ol for adult s with diabe sruthi: <7.0 Not Available [facility] ([facility]) [address] [facility], [place], [address], 09/16/2024 06:08:15 09/16/19 25 09/16/2024 VITAM IN D, 25-HY DROXY vitamin D, 25-hydroxy 32.0 NG/mL 30.0-1 00.0 Vitam in D defic iency has been defin ed by the Insti tute of Medic ine and an Endoc rine Socie ty pract ice guide line as a level of serum 25-OH vitam in D less than 20 ng/mL (1,2) . The Endoc rine Socie ty went on to furth er defin e vitam in D insuf ficie ncy as a level betwe en 21 and 29 ng/mL (2). 1. IOM (Inst itute of Medic ine). 2010. Dieta ry refer ence intak es for calci um and D. Spenser seth [place]: The [facility] Press . 2. Sophy bangura MF, Yogesh fernández [place], Rad off-F renata i BADILLO, et al. Evalu ation , treat ment, and preve ntion of vitam in D defic iency : an Endoc rine Socie ty clini emanuel pract ice guide line. JCEM. 2010; 96(7) :1911 -30. Not Available [facility] ([facility]) [address] [place], [address], 09/16/2024 06:08:15 09/16/19 25 09/15/2024 MAGNE SIUM magnesium 2.1 mg/dL 1.6-2. 3 normal Not Available [facility] ([facility]) [address] [place], [address], 09/16/2024 06:08:16 09/16/19 25 09/15/2024 TONE TIN ferritin 83 NG/mL 15-150 normal Not Available [facility] ([facility]) [address] [place], [address], 09/16/2024 06:08:16 10/05/19 25 10/05/2024 CBC WITH DIFFE RENTI AL/PL ATELE T WBC 4.6 x10e3 /uL 3.4-10 .8 normal Not Available [facility] ([facility]) [address] [facility], [address], 10/05/2024 06:11:48 10/05/1910/05/2024 CBC WITH DIFFE RENTI AL/PL ATELE T RBC 4.68 x10e6 /uL 3.77-5 .28 normal Not Available [facility] ([facility]) [address] [facility], [place], [address], 10/05/2024 06:11:48 10/05/1910/05/2024 CBC WITH DIFFE RENTI AL/PL ATELE T hemoglobin 13.0 g/dL 11.1-1 5.9 normal Not Available [facility] ([facility]) [address] [facility], [place], [address], 10/05/2024 06:11:48 10/05/1910/05/2024 CBC WITH DIFFE RENTI AL/PL ATELE T hematocrit 40.7 % 34.0-4 6.6 normal Not Available [facility] ([facility]) [address] [facility], [place], [address], 10/05/2024 06:11:48 10/05/1910/05/2024 CBC WITH DIFFE RENTI AL/PL ATELE T MCV 87 fL 79-97 normal Not Available [facility] ([facility]) [address] [place], [address], 10/05/2024 06:11:48 10/05/1910/05/2024 CBC WITH DIFFE RENTI AL/PL ATELE T MCH 27.8 pg 26.6-3 3.0 normal Not Available [facility] ([facility]) [address] [place], [address], 10/05/2024 06:11:48 10/05/19 25 10/05/2024 CBC WITH DIFFE RENTI AL/PL ATELE T MCHC 31.9 g/dL 31.5-3 5.7 normal Not Available [facility] ([facility]) [address] [facility], [place], [address], 10/05/2024 06:11:48 10/05/1910/05/2024 CBC WITH DIFFE RENTI AL/PL ATELE T RDW 12.1 % 11.7-1 5.4 Not Available [facility] ([facility]) [address] [facility], [place], [address], 10/05/2024 06:11:48 10/05/19 25 10/05/2024 CBC WITH DIFFE RENTI AL/PL ATELE T platelets 158 x10e3 /uL 150-45 0 normal Not Available [facility] ([facility]) [address] [facility], [place], [address], 10/05/2024 06:11:48 10/05/19 25 10/05/2024 CBC WITH DIFFE RENTI AL/PL ATELE T neutrophils 50 % not estab. normal Not Available [facility] ([facility]) [address] [facility], [place], [address], 10/05/2024 06:11:48 10/05/1910/05/2024 CBC WITH DIFFE RENTI AL/PL ATELE T lymphs 43 % not estab. normal Not Available [facility] ([facility]) [address] [facility], [place], [address], 10/05/2024 06:11:48 10/05/19 25 10/05/2024 CBC WITH DIFFE RENTI AL/PL ATELE T monocytes 6 % not estab. normal Not Available [facility] ([facility]) [address] [facility], [place], [address], 10/05/2024 06:11:48 10/05/19 25 10/05/2024 CBC WITH DIFFE RENTI AL/PL ATELE T eos 1 % not estab. normal Not Available [facility] ([facility]) [address] [facility], [place], [address], 10/05/2024 06:11:48 10/05/19 25 10/05/2024 CBC WITH DIFFE RENTI AL/PL ATELE T basos 0 % not estab. normal Not Available [facility] ([facility]) [address] [facility], [place], [address], 10/05/2024 06:11:48 10/05/19 25 10/05/2024 CBC WITH DIFFE RENTI AL/PL ATELE T immature cells MOLD DESIGN ENGINEER Not Available [facility] ([facility]) [address] [place], [address], 10/05/2024 06:11:48 10/05/1910/05/2024 CBC WITH DIFFE RENTI AL/PL ATELE T neutrophils (absolute) 2.3 x10e3 /uL 1.4-7. 0 normal Not Available [facility] ([facility]) [address] [place], [address], 10/05/2024 06:11:48 10/05/19 25 10/05/2024 CBC WITH DIFFE RENTI AL/PL ATELE T lymphs (absolute) 2.0 x10e3 /uL 0.7-3. 1 normal Not Available [facility] ([facility]) [address] [place], [address], 10/05/2024 06:11:48 10/05/1910/05/2024 CBC WITH DIFFE RENTI AL/PL ATELE T monocytes(ab solute) 0.3 x10e3 /uL 0.1-0. 9 normal Not Available [facility] ([facility]) [address] [place], [address], 10/05/2024 06:11:48 10/05/19 25 10/05/2024 CBC WITH DIFFE RENTI AL/PL ATELE T eos (absolute) 0.1 x10e3 /uL 0.0-0. 4 normal Not Available [facility] ([facility]) [address] [place], [address], 10/05/2024 06:11:48 10/05/19 25 10/05/2024 CBC WITH DIFFE RENTI AL/PL ATELE T baso (absolute) 0.0 x10e3 /uL 0.0-0. 2 normal Not Available [facility] ([facility]) [address] [facility], [place], [address], 10/05/2024 06:11:48 10/05/19 25 10/05/2024 CBC WITH DIFFE RENTI AL/PL ATELE T immature granulocytes 0 % not estab. Not Available [facility] ([facility]) [address] [facility], [place], [address], 10/05/2024 06:11:48 10/05/19 25 10/05/2024 CBC WITH DIFFE RENTI AL/PL ATELE T immature grans (abs) 0.0 x10e3 /uL 0.0-0. 1 Not Available [facility] ([facility]) [address] [facility], [place], [address], 10/05/2024 06:11:48 10/05/1910/05/2024 CBC WITH DIFFE RENTI AL/PL ATELE T NRBC MOLD DESIGN ENGINEER Not Available [facility] ([facility]) [address] [facility], [place], [address], 10/05/2024 06:11:48 10/05/1910/05/2024 CBC WITH DIFFE RENTI AL/PL ATELE T hematology comments: MOLD DESIGN ENGINEER Not Available [facility] ([facility]) [address] [facility], [place], [address], 10/05/2024 06:11:48 09/27/1909/26/2024 MAMMO , scree tanja, digit al, bilat eral No observ ation record ed. [email or web address] [facility] [address], [place], [address], 09/26/2024 12:44:10 09/27/1909/15/2024 MAMMO , scree tanja, digit al, bilat eral PROCED URE: MM Digita l Mammo Screen ing INDICA TION: Screen ing for breast cancer . No known palpab le abnorm alitie s. COMPAR ANNABELLE: Prior studie s dating back to 020 perfor med in [facility] in [place], [place] and [facility] in [place], [place]. TECHNI QUE: Full-f ield digita l CC and MLO 3D tomosy nthesi s images of both breast s were acquir ed. Comput er-aid ed detect ion (CAD) was utiliz ed in the interp retati on of this study. DENSIT Y: The breast tissue is extrem glenis dense, which lowers the sensit ivity of mammog linda. FINDIN GS: No suspic ious masses , suspic ious microc alcifi cation s, or areas of rahel ectura l distor tion are seen in either breast to sugges t malign ildefonso. IMPRES SHAMAR: No mammog raphic eviden ce of malign ildefonso. RECOMM ENDATI ON: Annual mammog raphic screen ing BI-RAD S: 1 (Negat faina) Lay letter mailed to jesus zev WSN: [id number] Orderi ng Physic caitlin: Israel Freire Dictat ed By: David Peacock MD Dictat ed Date/T bang: 9:47 am Review ed By: David Peacock MD Signed By: David Peacock MD Signed Date/T bang: 9:47 am Transc ribed By: CSB Transc riptio n Date/T bang: 9:39 am Birads : Jesus brothers Class: 5 [email or web address] [facility] ([facility]) [address] [place] [address], [id number], 09/26/2024 12:44:09 Result Notes None recorded. Problems Name Problem SNOMED Code Status Onset Date Resolution Date Notes Provider Name and Address Organization Details Recorded Time Carpal tunnel syndrome [id number] Active 2023 TAYLOR FREIRE PA-C [address], [address], [place], [address], [place] [facility] 4 14:18:09 Tendinitis of wrist 424013958 Active 2023 TAYLOR FREIRE PA-C [address], [address], [place], [address], [place] [facility] 4 14:18:19 History of bariatric surgical procedure 201160382 Active 2023 TAYLOR FREIRE PA-C [address], [address], [place], [address], [place] [facility] 4 18:51:50 Attention deficit hyperactivity disorder 546548896 Active 2023 TAYLOR FREIRE PA-C [address], [address], [place], [address], [place] [facility] 18:51:53 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 2023 TAYLOR FREIRE PA-C [address], [address], [place], [address], [place] [facility] 4 18:51:55 Arthritis 5551108 Active 2023 TAYLOR FREIRE PA-C [address], [address], [place], [address], [place] [facility] 4 18:51:57 Intervertebral disc prolapse 29757586 Active 2023 TAYLOR FREIRE PA-C [address], [address], [place], [address], [place] [facility] 4 19:00:50 Rosacea 488778880 Active 2023 TAYLOR FREIRE PA-C [address], [address], [place], [address], [place] [facility] 4 19:01:17 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 5 11:11:11 Laryngopharyng eal reflux 672064568 Active 2024 TAYLOR FREIRE PA-C [address] [facility], [facility] [address], [place], [address], [facility] - [facility] 5 13:13:04 Problem Notes None recorded. Procedures Surgical History Date Name Laterality Status Provider Name and Address Organization Details Recorded Time Hysterectomy completed TAYLOR Blas PA-C [address] [place] [address], [facility] [address], [place], [address], [facility] 01/07/2024 14:25:07 Imaging Results None recorded. Procedure Notes None recorded. Medical Equipment None Reported. Allergies No known drug allergies Medications Name Sig Start Date Stop Date Status Note LastModified by Organization Details LastModified Time celecoxib 200 mg capsule TAKE 1 CAPSULE BY MOUTH TWICE DAILY 10/21 completed Not Available Not Available Not Available methocarb malia 500 mg tablet 1 tablet by mouth TID 05/23 completed Not Available Not Available Not Available cetirizin e 10 mg tablet TAKE 1 TABLET BY MOUTH EVERY DAY FOR ALLERGIE S active Not Available Not Available No t Available Iron (ferrous sulfate) 325 mg (65 mg iron) tablet Take 1 tablet every day by oral route. active Not Available Not Available No t Available tretinoin 0.025 % topical cream APPLY TO THE AFFECTED AREA(S) BY TOPICAL ROUTE ONCE DAILY AT BEDTIME 2024 active Not Available Not Available Not Avai lable famotidin e 40 mg tablet TAKE 1 TABLET BY MOUTH EVERY DAY active Not Available Not Available No t Available tretinoin 0.05 % topical cream APPLY TO THE AFFECTED AREA(S) BY TOPICAL ROUTE ONCE DAILY AT BEDTIME 2024 active Not Available Not Available Not Avai lable Adderall XR 20 mg capsule,e xtended release TAKE 1 CAPSULE BY MOUTH EVERY DAY FOR 28 DAYS active Not Available Not Available No t Available famotidin e 20 mg tablet TAKE 1 TABLET 4 TIMES A DAY BY ORAL ROUTE NEEDED FOR 30 DAYS, FOR ACID REFLUX. active Not Available Not Available No t Available prednisol one acetate 1 % eye drops,briana pension active Not Available Not Available Not Available gabapenti n 300 mg capsule TAKE 1 CAPSULE BY MOUTH EVERY MORNING AND TAKE 2 CAPSULES EVERY AFTERNOO N active Not Available Not Available No t Available gabapenti n 100 mg capsule TAKE 1 CAPSULE BY MOUTH EVERY DAY AT BEDTIME FOR 30 DAYS active Not Available Not Available No t Available ibuprofen 600 mg tablet TAKE 1 TABLET BY MOUTH THREE TIMES DAILY NEEDED active Not Available Not Available No t Available Daily Multi-Vit greenberg 1 tablet once a day active Not Available Not Available No t Available Humira active injectio ns I1nxsns for suspecte d arthriti s Not Available Not Available Not Available Vyvanse 30 mg capsule TAKE 1 CAPSULE BY MOUTH EVERY DAY 09/09 completed Not Available Not Available Not Available levocetir izine 5 mg tablet TAKE 1 TABLET BY MOUTH EVERY DAY 10/21 completed Not Available Not Available Not Available Vyvanse 20 mg capsule TAKE 1 CAPSULE BY MOUTH EVERY DAY 10/22 completed Not Available Not Available Not Available calcium 1,000 mg (as carbonate )-vitamin D3 20 mcg (800 unit) tablet Take 1 tablet every day by oral route. active Not Available Not Available No t Available Vyvanse 10 mg capsule TAKE 1 CAPSULE BY MOUTH EVERY DAY 07/15 completed Not Available Not Available Not Available albuterol sulf 90 mcg/actua tion breath activated powder inhaler,s ensor Inhale 2 puffs every 4 hours by inhalati on route. active Not Available Not Available No t Available Vitals Date Recorded Body height Body mass index (BMI) Body weight Oxygen saturation Oxygen saturation in Arterial blood by Pulse oximetry Heart rate Systolic And Diastolic Provider Name and Address Organization Details Last Updated DateTime 5 162.56 cm 30.3 kg/m2 53824.3 6 g 99 % 99 % 72 /min 118/72 mm[Hg] Karin Bazan wang [place] [facility] 5 11:14:06 Date Recorded Body height Body mass index (BMI) Body weight Oxygen saturation Oxygen saturation in Arterial blood by Pulse oximetry Heart rate Systolic And Diastolic Provider Name and Address Organization Details Last Updated DateTime 5 162.56 cm 30.4 kg/m2 40008.8 5 g 99 % 99 % 81 /min 100/68 mm[Hg] Karin piña [place] [facility] 5 10:25:57 Date Recorded Body height Body mass index (BMI) Body weight Heart rate Oxygen saturation Oxygen saturation in Arterial blood by Pulse oximetry Systolic And Diastolic Provider Name and Address Organization Details Last Updated DateTime 5 162.56 cm 29.4 kg/m2 49201.1 g 85 /min 97 % 97 % 116/68 mm[Hg] Lissa lux [place] [facility] 5 14:42:35 Date Recorded Body height Body mass index (BMI) Body weight Heart rate Oxygen saturation Oxygen saturation in Arterial blood by Pulse oximetry Systolic And Diastolic Provider Name and Address Organization Details Last Updated DateTime 4 162.56 cm 31.6 kg/m2 25271.1 g 87 /min 99 % 99 % 120/74 mm[Hg] Fay Quiros LPN [address] [address], [place], [address], [facility] 4 11:44:00 Social History Question Answer Notes LastModified by Organizat ion Details LastModified Time Tobacco Smoking Status Former Smoker TAYLOR FREIRE PA-C [address] [address], [place], [address], [facility] 01/07/2024 14:37:23 Which Illicit Or Recreational Drugs Have You Used? Cbd Gummies Information not available 01/07/2024 When Did You Quit Smoking? 6-10yearssin celastcigare tte [email or web address] Information not available 01/07/2024 What Was The Date Of Your Most Recent Tobacco Screening? 01/07/2024 Information not available 01/07/2024 Sex: Unknown Functional Status Question Answer Note LastModified by Organizat ion Details LastModified Time Do you use any illicit or recreational drugs? Yes Information not available 01/07/2024 What is your level of alcohol consumption? None [email or web address] Information not available 01/07/2024 Mental Status None recorded. Family History Relationship Description Onset Age of this Age Resolved Age Notes LastModified by Organization Details LastModified Time Unspecified Relation Lilliana thyroiditis niece [email or web address] Not available 12/27 14:24:42 Unspecified Relation Malignant tumor of breast half- sister [email or web address] Not available 01/07/2024 14:33:35 Mother Malignant tumor of stomach [email or web address] Not available 2023 14:29:55 Sister Malignant tumor of thyroid gland Not available 2023 14:32:32 Father Malignant lymphoma [email or web address] Not available 2023 14:32:57 Father Malignant melanoma [email or web address] Not available 2023 14:33:05 Father Myocardial infarction x3 [email or web address] Not available 01/06 14:34:22 Father Cerebrovascu lar accident x2 Not available 04/2024 14:34:42 Maternal Uncle Myocardial infarction [email or web address] Not available 01/06 14:35:09 Maternal Uncle Malignant tumor of colon [email or web address] Not available 2024 11:26:32 Notes:brain (maternal), paddy [...] LNP-S, PF, 50 mcg/0.5 mL 05/06/2024 completed [facility] 07/08/2024 09:31:42 Influenza, split virus, trivalent, PF 05/06/2024 completed Y[facility]ISSA [facility] 07/08/2024 09:31:42 Tdap 06/29/2022 completed YULISSA [facility] 07/15/2024 11:12:19 Past Encounters Encounter ID Performer Location Encounter Start Date Encounter Closed Date Diagnosis/Indication Diagnosis SNOMED-CT Code Diagnosis ICD10 Code Diagnosis Note [id number] TAYLOR FREIRE PA-C Main Office [address] [place], [place] [address] [place] [address] 01/07/2024 13:59:28 01/07/2024 15:14:40 Patient new to provider [id number] 43780 Z76.89 Patient new to practice, here to establish care. Has not been seen by this office or provider within the last 3 years. Arthritis 0436998 M19.90 - Longstandi ng history of widespread [...] medication s, given current sobriety. Temporoman dibular ftouo-tvvd-sylvztupkx n syndrome 435055679 M26.629 Daily nighttime grinding. Wears nightguard . Previously obtained relief through Botox injections , may pursue again in the future. Attention deficit hyperactivity disorder 347281812 F90.9 Diagnosed with ADHD during childhood. Started on Vyvanse 10 mg. Interested in future medication management with psychiatry , although will plan to titrate as needed in the meantime. Psychiatry referrals provided below. History of bariatric surgical procedure 560647379 Z98.84 Follows a plant-base d diet. On magnesium supplement ation. Will screen for deficienci es, as well. Requesting referral to bariatric dietitian. Screening for cardiovascular system disease 193464244 Z13.6 Diabetes m ellitus screening 089448238 Z13.1 Vitamin D deficiency 347 [address]496 E55.9 Gastroesop hageal reflux disease without esophagitis 310443200 K21.9 History of GERD, as confirmed by previous endoscopy. Requesting referral at this time. Thyroid di sorder screening 067725939 Z13.29 Tarsal coalitions 092860 08 Q66.89 [id number] TAYLOR FREIRE PA-C Main Office [address] [place] [address],[address] [place] [address] 02/08/2024 13:40:58 02/08/2024 14:32:19 Rheumatoid factor detected 537035982 R76.0 - Consistent ly tested positive since [...] pain medication s, given current sobriety. Hypocalcemia 7862017 E83 .51 On supplement ation, will monitor. Mild deficiency present. May be secondary to history of gastric sleeve. Vitamin D deficiency 347 05891 E55.9 On vitamin d supp, although not consistent ly. Neck pain 81371309 M54.2 Requesting eval & treatment of atraumatic neck pain. Patient hold tension/st ress in neck & shoulders. Underlying history of fibromyalg ia and possible rheumatoid arthritis. Decreased hearing 984298 001 H91.90 Concern of audiology speech processing disorder. Struggles with processing informatio n, particular ly in loud environmen ts. Requests referral as below. Family his tory of malignant melanoma 104273786 Z80.7 Seasonal a llergic rhinitis 136417478 J30.2 Attention deficit hyperactivity disorder 390082587 F90.9 Diagnosed with ADHD during childhood. Started on Vyvanse 10 mg and Straterra in the past.- Interested in future medication management with psychiatry . Completed [facility] intake.- Plans to undergo an evaluation with [facility] in the future for autism screening as well- As we do not have historical medical records of previous prescribin g informatio n related to ADHD medication s, we agreed to defer management to psychology at this time. Patient is understand ing. History of bariatric surgical procedure 026680558 Z98.84 Follows a plant-base d diet. On magnesium supplement ation. No evidence of anemia of B12 deficiency . Reviewed mild deficiency of protein and calcium on CMP. Will continue to monitor. [id number] TAYLOR FREIRE PA-C Main Office [address] [place] [address],[address] [place] [address] 03/11/2024 14:44:53 03/11/2024 15:25:44 Rheumatoid factor detected 171764273 R76.0 - Consistent ly tested positive since 20s. - looking to transfer care to a new rheumatolo gist (has been followed in the past, has trialed DMARD therapy).- Longliseth history of widespread arthritis, diagnosed in mid [...] sobriety. Currently working with pain management at [facility], planning to obtain trigger point injections and potential Botox in the future.- Patient request that we adjust previous rheumatolo gy referral to [facility]. Hypocalcemia 4235234 E83 .51 On supplement ation, will monitor. Mild deficiency present. May be secondary to history of gastric sleeve. Vitamin D deficiency 347 12953 E55.9 On vitamin d supp, although not consistent ly. Neck pain 22467312 M54.2 Requesting eval & treatment of atraumatic neck pain. Patient hold tension/st ress in neck & shoulders. Underlying history of fibromyalg ia and possible rheumatoid arthritis. Physical therapy referral placed at previous visit. Decreased hearing 837088 001 H91.90 Concern of audiology speech processing disorder. Struggles with processing informatio n, particular ly in loud environmen ts. Upcoming consult with [facility] for audiology screening at [facility]. Family his tory of malignant melanoma 609115994 Z80.7 Referral sent to [facility] previously . Seasonal a llergic rhinitis 781221581 J30.2 Maintained on levocetiri zine 5 mg p.o. daily. Attention deficit hyperactivity disorder 878311924 F90.9 Diagnosed with ADHD during childhood. Started on Vyvanse 10 mg and Straterra in the past.? S ymptoms include difficulty with concentrat ion, difficulty completing tasks, difficult goals with multitaski ng, difficulty with shortened patience, inability to sit still while others are talking- Plans to undergo an evaluation with [facility] in the future for autism screening as well-Histo rical medical medical records reviewed, diagnoses of ADHD and mentioned on 07/18/2023 records from [place], [place]. Negative UDS obtained. Will plan to restart Vyvanse 10 mg p.o. daily at this time, and bridge prescripti on until patient establishe s with [facility] medication provider. Will maintain close follow-up in 1 month to assess medication effectiven ess. Reviewed in detail possible risks, benefits, and side effects, as well as known risk of addiction. History of bariatric surgical procedure 184835006 Z98.84 Follows a plant-base d diet. On magnesium supplement ation. No evidence of anemia of B12 deficiency . Reviewed mild deficiency of protein and calcium on CMP. Will continue to monitor. [facility] 486900 08 Q66.89 Upcoming consult with podiatry scheduled. History of substance abuse 266932489 F19.11 Clean for > 19 years. 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 [id number] TAYLOR FREIRE PA-C Main Office [address] [facility],[address] [place] [address] 04/08/2024 11:31:52 04/08/2024 12:47:13 Attention deficit hyperactivity disorder 271524899 F90.9 Stable/imp roving on Vyvanse 10 mg.? S ymptoms include difficulty with concentrat ion, difficulty completing tasks, difficult goals with multitaski ng, difficulty with shortened patience, inability to sit still while others are talking- Plans to undergo an evaluation with [facility] in the future for autism screening as well.- Awaiting placement with [facility] medication provider. History of bariatric surgical procedure 895095056 Z98.84 Follows a plant-base d diet. On magnesium supplement ation. No evidence of anemia of B12 deficiency . Reviewed mild deficiency of protein and calcium on CMP. Will continue to monitor. Major depr essive disorder 909603655 F32.9 [id number] TAYLOR FREIRE PA-C Main Office [address] [facility],[address] [place] [address] 04/28/2024 15:20:06 05/06/2024 03:30:53 Gastroesophageal reflux disease 688858125 K21.9 Tight chest 41159722 R07 .89 Palpitations 48423578 R0 0.2 [id number] TAYLOR FREIRE PA-C Main Office [address] [facility],[address] [place] [address] 05/23/2024 11:34:30 05/23/2024 12:15:52 Palpitations 33725234 R00.2 Improved/s table in nature. Pt declines holter monitor/ec ho at this time.If symptoms worsen, may consider in the future. Laryngopha ryngeal reflux 360837297 K21.9 - Assessment : Patient reports improvemen [...] during omeprazole tapering. Attention deficit hyperactivity disorder 068648590 F90.9 Stable/imp roving on Vyvanse 10 mg.? S ymptoms include difficulty with concentrat ion, difficulty completing tasks, difficult goals with multitaski ng, difficulty with shortened patience, inability to sit still while others are talking- Plans to undergo an evaluation with [facility] in the future for autism screening Jun 2024- Awaiting placement with [facility] medication provider.- Will increase to vyvanse 20 mg po daily; will monitor for sx and reassess in 6 weeks at annual exam- Education: Discuss potential side effects of Vyvanse and the importance of adherence to the prescribed dosage. Arthritis 8788527 M19.90 - Longstandi ng history of widespread arthritis, diagnosed in mid 20s. Mainly involves cervical spine, SI joint, and ankles. Previous question of rheumatoid component, notes a positive DOMONIQUE in the past. Negative HBLA ag testing.- Currently followed/m anaged by [facility]. On celebrex 200 mg po bid x 6 mo. Suspected undifferen tiated, inflammato ry arthritis. [id number] TAYLOR FREIRE PA-C Main Office [address] [place] [address],[address] [place] [address] 07/15/2024 11:02:34 07/15/2024 11:53:14 Active or passive immunization 697930818 Z23 Up-to-date on tetanus, flu, and covid immunizati on. Adult heal th examination 116859164 Z00.00 No longer obtains Pap smears in the setting of historical elective hysterecto my.Due for mammogram, will order as below.Up-t o-date on colon cancer screening (obtained at age 46), due for repeat at age 51 given family history.Up coming eye exam next week. Upcoming dental exam in September 2024. Screening for malignant neoplasm of breast 922483362 Z12.39 Gastroesop hageal reflux disease 353886557 K21.9 Attention deficit hyperactivity disorder 351267620 F90.9 ? Symptoms include difficulty with concentrat ion, difficulty completing tasks, difficult goals with multitaski ng, difficulty with shortened patience, inability to sit still while others are talking- Plans to undergo an evaluation with [facility] in the future for autism screening Jun 2024- Awaiting placement with [facility] medication provider.- Will increase to vyvanse 30 mg po daily; will monitor for sx and reassess in 3 months.- Education: Discuss potential side effects of Vyvanse and the importance of adherence to the prescribed dosage. Laryngopha ryngeal reflux 108125621 K21.9 - Assessment : Patient reports improvemen [...] changes and monitoring symptoms during omeprazole tapering. [id number] TAYLOR FREIRE PA-C Main Office [address] [facility],[address] [facility] [place] [address] 09/09/2024 10:20:12 09/09/2024 11:21:09 Arthritis 8615853 M19.90 - Longstandi ng history of widespread arthritis, diagnosed in mid 20s. Mainly involves cervical spine, SI joint, and ankles. Previous question of rheumatoid component, notes a positive DOMONIQUE in the past. Negative HBLA ag testing.- Currently followed/m anaged by [facility]; will f/u in 3-4 mo. On celebrex 200 mg po bid x 6 mo. Suspected undifferen tiated, inflammato ry arthritis. Attention deficit hyperactivity disorder 682728004 F90.9 ? Currently managed on Vyvanse 20 mg po daily. Symptoms include difficulty with concentrat ion, difficulty completing tasks, difficult goals with multitaski ng, difficulty with shortened patience, inability to sit still while others are talking- Diagnosis again confirmed by [facility]; pt will send in copy of report- Did meet with [facility] psychiatri st, but prefers to continue management through PCP- Will initiate contract once we have stabilized on dosing Screening for cardiovascular system disease 693387011 Z13.6 History of bariatric surgical procedure 382812788 Z98.84 Follows a plant-base d diet. On magnesium supplement ation. Allergic rhinitis 182676 04 J30.9 Diabetes m ellitus screening 406480516 Z13.1 History of substance abuse 324617803 F19.11 Clean for > 19 years. 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 Restless legs 45972130 G 25.81 Could consider pramipexol e vs. ropinirole if pt chooses to d/c gabapentin in the future. [id number] FÁTIMA NUNEZ Main Office [address] [facility],[address] [place] [address] 09/07/2024 10:00:31 09/07/2024 10:38:56 Solar lentigo 20217595 L81.4 Multiple b enign melanocytic nevi 342170867 D22.9 Chloasma 15505447 L81.1 [id number] FÁTIMA AMBRIZ-Billie Main Office [address] [facility],[address] [place] [address] 10/21/2024 14:30:26 10/21/2024 15:20:34 Arthritis 7292985 M19.90 - Longstandi ng history of widespread arthritis, diagnosed in mid 20s (Suspected undifferen tiated, inflammato ry arthritis) . Mainly involves cervical spine, SI joint, and ankles. Previous question of rheumatoid component, notes a positive DOMONIQUE in the past. Negative HBLA aB testing.- Currently followed/m anaged by [facility]; will f/u in 3-4 mo. On celebrex 200 mg po bid x 6 mo. Also maintained on gabapentin 300 mg at breakfast, 600 mg at lunch, and an additional 100 mg before bedtime. Restless legs 07409267 G 25.81 Maintained on gabapentin , as above, with good effect. Could consider pramipexol e vs. ropinirole if pt chooses to d/c gabapentin in the future. Attention deficit hyperactivity disorder, combined type 46720580 F90.2 - ADHD symptoms not well managed with current Vyvanse regimen, considerin g switch to Adderall extended release for better symptom control. Diagnosis confirmed by [facility]; pt will send in copy of report- Switch to Adderall extended release 20 mg to provide more consistent coverage throughout the day. Monitor for any side effects such as headache, abdominal pain, dizziness, sleep disturbanc es, or appetite changes. If any allergic reactions occur, discontinu e use immediatel y and inform the office. Discontinu e Vyvanse. Any remaining pills can be returned to the pharmacy.- Will initiate contract once we have stabilized on dosing Laryngopha ryngeal reflux 653935494 K21.9 Continue dietary changes and lifestyle modificati ons, including eating dinner earlier and using an adjustable bed to elevate the head during sleep. Continues famotidine 20 mg po 4 times daily prn. Tapered off omeprazole . Upcoming ENT appt. History of thrombocytopenia 2598201217 9108 Z86.2 Platelet count normalizat ion, previously low likely due to Humira, now stable. Health Concerns Section Related Observation LastModified by Organization Detai ls LastModified Time None Recorded Concern Status LastModified by Organization Details LastModified Time None Recorded Advance Directives Directive None Recorded Payers Encounter Date Sequence Insurance Name Policy Number Policy Devries Covered Member ID Devries Member ID Guarantor Name 05/23/2024 1 [place] [facility] Sonya Nikoleacewilfrido [id number] Sonya Nikolesav 07/15/2024 1 [place] [facility] Sonya Nikoleaceman [id number] Sonya Nikoleshman 09/07/2024 1 [place] [facility] Sonya Nikoleacewilfrido [id number] Sonya Nikoleaceman 09/09/2024 1 [place] [facility] Sonya Carmenman [id number] Sonya Felshman 10/21/2024 1 [place] [facility] Sonya Nikoleaceman [id number] Sonya Nikoleacewilfrido Notes Date Note Type Note Provider Name and Address Organization Details Recorded Time 05/23/2024 text/html Sonya García i s a [...] changes in her health. TAYLOR FREIRE PA-C [address] [place] [address], [id number], [facility] 05/23/2024 12:29:33 07/15/2024 text/html Sonya García, [...] benefit from increased effectiveness. TAYLOR FREIRE PA-C [address] [place] [address], [id number], [facility] 07/15/2024 13:03:05 09/07/2024 text/html Established jalen ent presents today for a full skin exam. Patient denies h/o NMSC or MM. Father with melanoma. Sister with NMSC. Patient has no specific concerns today. FÁTIMA NUNEZ [address] [place] [address], [id number], [facility] 09/07/2024 12:30:52 09/09/2024 text/html Sonya García, a 49-year-old female, has been experiencing restless leg syndrome (RLS) and was initially prescribed gabapentin for this condition. She reports that since starting gabapentin, she has only had about two episodes of RLS. The RLS was severe enough to occur during the day as well as at night; patient is also empirically treated for suspected fibromyalgia. She has been taking 300 mg during the day and 600 mg at night to manage her symptoms. Sonya also reports neck pain upon waking and has been experiencing anxiety, which she attributes to personal life stressors, including a recent relationship change. She has a history of gastric bypass surgery and follows a vegan diet, which complicates her nutritional intake. Sonya has been on Humira for arthritis, having completed her second injection, but has not noticed significant improvement. She experienced a flare-up with her fingers turning red and swollen, which prompted the trial of Humira. TAYLOR FREIRE PA-C [address], [phone], [facility] 09/12/2024 08:16:59 10/21/2024 text/html Sonya García, a 49-year-old female, presents for a medication f/u visit. Patient has been continuing to experience symptoms related to ADHD, including hyperactivity and inattention. She has been on Vyvanse, a stimulant medication, but reports inconsistent effectiveness and a crash in energy levels before the end of the day. Sonya has noticed increased ADHD symptoms potentially exacerbated by perimenopause and recent stress due to the ending of a relationship. She has been diagnosed with combined type ADHD. Sonya has previously tried Strattera, a non-stimulant, but did not find it effective and experienced side effects. Her recent lifestyle changes include increased physical activity, although she has not exercised consistently in the past two weeks due to personal circumstances. Sonya has a history of gastric surgery and has been managing reflux symptoms, which occasionally cause shortness of breath. She has been using gabapentin for pain relief and sleep, which was initially prescribed for fibromyalgia and restless legs syndrome. TAYLOR FREIRE PA-C [address] [address], [place], [phone], [facility] 10/22/2024 13:20:55 OBGyn Episode No OBEpisode recorded.
== END 2024-11-22 09:50 | disposition home or self-care (01) ==
LOC: HO.RHE 09:12
PROVIDERS: PCP Family Medicine; Visit Provider Student in an Organized Health Care Education/Training Program
DX: M15.9 Polyosteoarthritis, unspecified (principal)
CPT/HCPCS: 99214